=== PATIENT | male | born 1935 | race Caucasian/White ===

== ENCOUNTER 2020-03-04 08:45 | Emergency (ER) | payer MEDICARE ==
[~2020-03-04] VITALS: Ht 188 cm; Wt 74.8 kg
[2020-03-04] MEDS ORDERED: HYDROCODONE/APAP 7.5MG-325MG 1 EA TAB PO PRN (09:00)
[2020-03-04] MEDS ORDERED: DIAZEPAM 2 MG TAB PO ONE (09:00)
[2020-03-04] MEDS ORDERED: LIDOCAINE 4% PATCH TP SCH (09:00)
[2020-03-04] MEDS ORDERED: ONDANSETRON HCL INJ 2MG/ML 2ML 2 MG/ML VIAL IV STA (09:06)
[2020-03-04] MEDS ORDERED: MORPHINE SULFATE INJ 4 MG/ML INJ 1ML IV PRN (09:15)
[2020-03-04] MEDS ORDERED: DIAZEPAM 5 MG TAB PO PRN (09:15)
[2020-03-04] MEDS ORDERED: FENTANYL 25 MCG/HR PATCH TOP SCH (09:15)
--- NOTE | 2020-03-04 09:27 | NUR ---
Patient provided with an incentive spirometer and proper use teaching by respiratory therapy. Dr. Albrecht explained to the patient the importance of lung expansion and deep breathing to prevent the possible complication of pneumonia. Patient and spouse stated understanding of teaching.
--- NOTE | 2020-03-04 09:39 | Emergency Department Note ---
History of Present Illnes History of Present Illness Chief Complaint: General Medicine Complaints History of Present Illness This is a 84 year old male arrives to the ED with complaints of left rib pain and back pain after a sudden motion at home. Patient denies any cough or shortness of breath. . Chief Complaint Comment Patient in from home with complaints of left rib and back pain that started after he reacted to tripping at home yesterday. Patient states he was walking through his home and tripped over a rug but did not fall. Patient reports that he "jerked" when he tripped and has been in pain since. The pain is reproducible with palpation over he back just below his left scapula and it is very painful for him to move his left arm. Patient also states that he is having pain when breathing and talking. Denies any physical injury/trauma from the incident. Historian: Patient Arrival Mode: Car Severity: mild Onset quality: sudden Duration (how long): day(s) Timing of current episode: constant Context: Reports trauma/injury Past Medical/Family History Physician Review I have reviewed the patient's past medical and family history. Any updates have been documented here. Past Medical History Recent Fever: No Clinical Suspicion of Infectio: No New/Unexplained Change in Ment: No Past Medical History: Hypertension, Osteoarthritis Past Surgical History: CABG Other Surgery: thyroidectomy Social History Smoking Cessation: Never Smoker Counseling Performed: No Alcohol Use: None Any Illegal Drug Use: No Physically hurt or threatened: No Other Any Pre-Existing Lines (PICC,: No Review of Systems Review of Systems Constitutional: Reports no symptoms EENTM: Reports no symptoms Cardiovascular: Reports no symptoms Respiratory: Reports no symptoms Gastrointestinal: Reports no symptoms Genitourinary: Reports no symptoms Musculoskeletal: Reports as per HPI, Reports back pain Integumentary: Reports no symptoms Neurological: Reports no symptoms Psychological: Reports no symptoms Endocrine: Reports no symptoms Hematological/Lymphatic: Reports no symptoms Physical Exam Related Data Allergies: Coded Allergies: aspirin (Verified Allergy, Unknown, 03/04/20) Triage Vital Signs Vital Signs Date Time Temp Pulse Resp B/P (MAP) Pulse Ox O2 Delivery O2 Flow Rate FiO2 03/04/20 08:51 97.9 75 18 127/92 97 Room Air Vital signs reviewed: Yes Physical Exam CONSTITUTIONAL Constitutional: Present well-developed, Present well-nourished HENT HENT: Present normocephalic, Present atraumatic, Present oropharynx clear/moist, Present nose normal HENT L/R: Present left ext ear normal, Present right ext ear normal EYES Eyes: Reports PERRL, Reports conjunctivae normal NECK Neck: Present ROM normal PULMONARY Pulmonary: Present effort normal, Present breath sounds normal CARDIOVASCULAR Cardiovascular: Present regular rhythm, Present heart sounds normal, Present capillary refill normal, Present normal rate GASTROINTESTINAL Abdominal: Present soft, Present nontender, Present bowel sounds normal GENITOURINARY Genitourinary: Present exam deferred SKIN Skin: Present warm, Present dry MUSCULOSKELETAL Musculoskeletal: Present tenderness, Present other (tenderness over left posterior ribs 5 and 6) NEUROLOGICAL Neurological: Present alert, Present oriented x 3, Present no gross motor or sensory deficits PSYCHOLOGICAL Psychological: Present mood/affect normal, Present judgement normal Results Imaging Imaging results reviewed: Yes Imaging Comments Impression: Age indeterminate though likely subacute-chronic minimally displaced fracture of the posterior left fifth rib. Correlate for point tenderness. No pneumothorax. Postsurgical mediastinum with coarse pulmonary interstitial prominence, likely age-related fibrotic changes. Assessment & Plan Medical Decision Making MDM 84-year-old male arrives to the ED with left-sided back pain, patient denies any shortness of breath but markedly uncomfortable on exam. Patient's x-ray findings consistent with moderate displaced left-sided rib fracture. Lidoderm patch applied, patient given a low-dose fentanyl patch. Patient also given oral pain medications. Pt noted marked relief from pain and was stable for discharge home. Patient was discharged home on incentive spirometer and I encouraged early ambulation and good pulmonary toilet to ensure no development of atelectasis thereby producing pneumonia. Expressed understanding of stable for discharge home. Assessment & Plan Final Impression: (1) Rib fracture Depart Disposition: HOME, SELF-CARE Last Vital Signs Date Time Temp Pulse Resp B/P (MAP) Pulse Ox O2 Delivery O2 Flow Rate FiO2 03/04/20 09:29 71 20 98 03/04/20 09:01 142/81 Room Air 03/04/20 08:59 97.9 Home Meds Active Scripts Tramadol Hcl* (ULTRAM 50MG*) 50 Mg Tab, 50 MG PO Q6HR PRN for MUSCLE SPASMS, #14 TAB Prov:DANNYR, JUAN MANUEL, DO 03/04/20 Lidocaine/Menthol (LIDOPATCH) 1 Each Adh..patch, 1 PATCH TOP DAILY, #14 PATCH Prov:JUAN MANUEL FERNANDEZ DO 03/04/20 Medications in the ED Acetaminophen/ Hydrocodone Bitart 1 ea ONCE PRN PO MODERATE PAIN (4-6); Start 03/04/20 at 09:00; Stop 03/11/20 at 08:59 Diazepam 2 mg ONCE ONCE PO ; Start 03/04/20 at 09:00; Stop 03/04/20 at 09:07; Status DC Lidocaine 1 ea ONCE TP ; Start 03/04/20 at 09:00; Stop 04/03/20 at 08:59 Diazepam 5 mg ONCE PRN PO ANXIETY Last administered on 03/04/20at 09:12; Admin Dose 5 MG; Start 03/04/20 at 09:15; Stop 03/11/20 at 09:14 Morphine Sulfate 4 mg ONCE PRN IV SEVERE PAIN (7-10) Last administered on 03/04/20at 09:12; Admin Dose 4 MG; Start 03/04/20 at 09:15; Stop 03/11/20 at 09:14 Ondansetron HCl 4 mg NOW STAT IV Last administered on 03/04/20at 09:12; Admin Dose 4 MG; Start 03/04/20 at 09:06; Stop 03/04/20 at 09:10; Status DC Fentanyl 1 ea Q72H TOP ; Start 03/04/20 at 09:15; Stop 03/11/20 at 09:14 JUAN MANUEL FERNANDEZ DO Mar 04, 2020 09:38
--- NOTE | 2020-03-04 10:08 | Diagnostic Imaging Report ---
Exam: Left rib series with frontal chest radiograph History: Rib pain Comparison: None. Findings: The lungs are well-inflated. Coarse prominence of the interstitium throughout the lungs. No pleural effusion or pneumothorax. Postsurgical changes of the mediastinum with multiple intact sternotomy wires and mediastinal surgical clips. Normal heart size without overt pulmonary edema. Age-indeterminate though likely subacute-chronic minimally displaced fracture of the posterior left fifth rib. No additional displaced fracture. Impression: Age indeterminate though likely subacute-chronic minimally displaced fracture of the posterior left fifth rib. Correlate for point tenderness. No pneumothorax. Postsurgical mediastinum with coarse pulmonary interstitial prominence, likely age-related fibrotic changes. Signed by: Dr. Ludin Short M.D. on 03/04/2020 10:05 AM
[2020-03-04] MEDS ORDERED: LIDOPATCH1 EACH TOP (10:36)
[2020-03-04] MEDS ORDERED: ULTRAM 50MG50 MG PO (10:36)
[2020-03-04 10:50] VITALS: BP 139/77
--- OUTSIDE RECORDS SUMMARY | 2020-03-04 10:57 | XMS REPORT | Continuity of Care Document ---
Author Author [facility] t Organization [facility] Address [address] [place] [address] Phone Unavailable Care Team Providers Care Circuit Board Assembler Name Role Phone Dale Hernandez PCP Unavailable Vincenzo FERNANDEZ Attphys Unavailable KAT MARIE Attphys Unavailable TYLER BRAVO Attphys Unavailable RASHI, ARIF Attphys Unavailable ALI, QASAM SANAH Admphys Unavailable VALDEZ, DALLIN Admphys Unavailable Problems Condition Name Condition Details Condition Category Status Onset Date Resolution Date Last Treatment Date Treating Clinician Comments Source Pneumonia of both lower lobes due to infectious organi sm Pneumonia of both lower lobes due to infectious organism Disease Active 2017-09-26 00:00:00 [facility] Acute respiratory failure with hypoxia Acute respiratory rizwana lure with hypoxia Disease Active 2017-09-26 00:00:00 [facility] Pneumonia of both lungs due to infectious organism Pne umonia of both lungs due to infectious organism Disease Active 2016-12-30 00:00:00 [facility] Hypophosphatemia Hypophosphatemia Disease Active 2016-12-30 00:00:00 [facility] Thrombocytopenia Thrombocytopenia Disease Active 2016-12-30 00:00:00 [facility] Hyperlipidemia Hyperlipidemia Disease Active 2016-12-30 00:00:00 [facility] Hypertension Hypertension Disease Active 2016-12-30 00:00:00 [facility] Anemia Anemia Disease Active 2016-12-30 00:00:00 [facility] Leukopenia Leukopenia Disease Active 2016-12-30 00:00:00 [facility] Dehydration Dehydration Disease Active 2016-12-30 00:00:00 [facility] PAF (paroxysmal atrial fibrillation) PAF (paroxysmal atrial fibrillation) Disease Active 2016-05-11 00:00:00 [facility] Acute kidney injury Acute kidney injury Disease Active 2015-10-10 [facility] Hyp[facility] Disease Active 2015-10-09 00:00:00 [facility] CAD (coronary artery disease), S/P ACB i n 2008 cath, LAD 100%, RCA 100%, LCX critical, WYATT to LAD patent, SVG to OM1 60%,SVG to OM 2 patent, CAD (coronary artery disease), S/P ACB in 2008 cath, LAD 100%, RCA 100%, LCX critical, WYATT to LAD patent, SVG to OM1 60%,SVG to OM 2 patent, Disease Active 2013-10-11 00:00:00 [facility] Allergies, Adverse Reactions, Alerts Allergy Name Allergy Type Status Severity Reaction(s) Onset Date Inacti ve Date Treating Clinician Comments Source Salicylates Drug Allergy Active Other (See Comments) 2013-10-10 00:00:00 GI BLEEDStomach bleed [facility] Aspirin Propensity to adverse reactions Active Othe r (See Comments) 2007-08-25 00:00:00 GI BLEED [facility] Family History Family Member Diagnosis Comments Start Date Stop Date Source Natural father Alcohol abuse [facility] Natural mother Arthritis [facility] Natural mother Stroke [facility] Natural son Diabetes [facility] Social History Social Habit Start Date Stop Date Quantity Comments Source Sex Assigned At [facility] Smoking Status Start Date Stop Date Source Never smoker [facility] Medications Ordered Medication Name Filled Medication Name Start Date Stop Da te Current Medication? Ordering Clinician Indication Dosage Frequency Signature (SIG) Comments Components Source predniSONE (DELTASONE) 10 MG tablet 2017-10-04 00:00:00 Yes Take 2 tablet x 3 days then 1 tablet x 3 days then stop. [facility] levothyroxine (SYNTHROID, LEVOTHROID) 112 MCG tablet 2 11:20:44 Yes 112ug Take 112 mcg by mouth Every morning on a n empty stomach. [facility] fish oil-dha-epa 1,200-144-216 mg Cap 2017-09-26 10:58:49 Yes [id number] Take by mouth 3 (three) times daily . [facility] amiodarone (PACERONE) 200 MG tablet 2017-09-26 10:58:49 Yes 100mg QD Take 100 mg by mouth daily . [facility] alfuzosin (UROXATRAL) 10 mg 24 hr tablet 2017-09-26 10:58:49 Yes 10mg QD Take 10 mg by mouth daily. [facility] azelastine (ASTELIN) 137 mcg (0.1 %) nasal spray 2016-12-27 18:27:46 Yes 1{spray} Q.5D [address] spray [address] Nasal rou te 2 (two) times daily Use in each nostril as directed . [facility] atorvastatin (LIPITOR) 40 MG tablet 2016-12-27 18:27:45 Yes 40mg QD Take 40 mg by mouth daily. [facility] pantoprazole (PROTONIX) 40 MG tablet 2016-05-13 00:00:00 Ye s 40mg QD Take 1 tablet (40 mg total) by mouth daily Take twice daily for 1 week and then daily therafter. [facility] VITAMIN B COMPLEX ORAL 2015-10-09 10:57:05 Yes Take by mouth. [facility] tiZANidine (ZANAFLEX) 4 MG tablet 2015-09-05 00:00:00 Yes TAKE ONE TABLET BY MOUTH EVERY 6 HOURS NEEDED FOR PAIN. [facility] clopidogrel (PLAVIX) 75 mg tablet 2015-08-15 00:00:00 Yes TAKE ONE TABLET BY MOUTH EVERY DAY. [facility] nitroglycerin (NITROSTAT) 0.4 MG SL tablet 2015-07-19 00:00:[address] 0.4 mg under the tongue. [facility] gabapentin (NEURONTIN) 100 MG capsule 2015-06-27 00:00:00 Y es 100mg QD Take 100 mg by mouth nightly . [facility] niacin (NIASPAN) 1000 MG CR tablet 2014-03-06 00:00:00 Yes TAKE 1 TABLET BY MOUTH AT BEDTIME. [facility] folic acid (FOLVITE) 400 MCG tablet 2013-10-10 01:26:00 Yes 400ug QD Take 400 mcg by mouth daily. [facility] Procedures This patient has no known procedures. Results Test Description Test Time Test Comments Results Result Comments Source RIBS UNILAT W/CXR 2020-03-04 09:59:00 [place] [address] Patient Name: EMMA AMATO MR #: [id number] : 1935 Age/Sex: 84/M Req #: [id number] Adm Physician: Ordered by: JUAN MANUEL FERNANDEZ DO Report #: [id number] Location: ER Room/Bed: Procedure: [id number] DX/RIBS UNILAT W/CXR Exam Date: 03/04/20 Exam Time: 909 REPORT STATUS: Signed Exam: Left rib series with frontal chest radiograph History: Rib pain Comparison: None. Findings: The lungs are well-inflated. Coarse prominence of the interstitium throughout the lungs. No pleural effusion or pneumothorax. Postsurgical changes of the mediastinum with multiple intact sternotomy wires and mediastinal surgical clips. Normal heart size without overt pulmonary edema. Age-indeterminate though likely subacute-chronic minimally displaced fracture of the posterior left fifth rib. No additional displaced fracture. Impression: Age indeterminate though likely subacute-chronic minimally displaced fracture of t he posterior left fifth rib. Correlate for point tenderness. No pneumothorax. Postsurgical mediastinum with coarse pulmonary interstitial prominence, likely age-related fibrotic changes. Signed by: Dr. Isaac Short M.D. on 03/04/2020 10:05 AM Dictated By: ISAAC SHORT MD 1005 Transcribed By: JOSE R on 03/04/20 1005 COPY TO: JUAN MANUEL FERNANDEZ, DO AFB CULTURE + SMEAR 2017-10-31 07:58:00 Test Item CULTURE (BEAKER) (test code = 1095) MYCOBACTERIUM ABSCESSUS A Mycobacterium abscessus* - subsp. abscessusIdentification performed by:[facility], Dept. of Microbiology Research, 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 Because of possible gene transfer, testing of two genes is r equired for subspecies of M. abscessus and some M. fortuitum group. The erm gene has a functional sequence and hence will be macrolide resistant.FUNGUS CULTURE + [id number] 15:43:00* Test Item Value Reference Range Interpretation Comments CULTURE (BEAKER) (test code = 1095) A 1+ Nazia albicans FUNGUS SMEAR (BEAKER) (test code = 1406) No fungi seen BASIC METABOLIC [id number] 06:37:00* Test Item Value Reference Range Interpretation Comments SODIUM (BEAKER) (test code = 381) 141 meq/L 136-145 POTASSIUM (BEAKER) (test code = 379) 4.2 meq/L 3.5-5.1 CHLORIDE (BEAKER) (test code = 382) 112 meq/L 98-107 H CO2 (BEAKER) (test code = 355) 23 meq/L 22-29 BLOOD UREA NITROGEN (BEAKER) (test code = 354) 32 mg/dL 7-21 H CREATININE (BEAKER) (test code = 358) 0.89 mg/dL 0.57-1.25 GLUCOSE RANDOM (BEAKER) (test code = 652) 92 mg/dL 70-105 CALCIUM (BEAKER) (test code = 697) 7.8 mg/dL 8.4-10.2 L EGFR (BEAKER) (test code = 1092) 82 mL/min/1.73 sq m ESTIMATED GFR IS NOT ACCURATE CREATININE CLEARANCE IN PREDICTING GLOMERULAR FILTRATION RATE. ESTIMATED GFR IS NOT APPLICABLE FOR DIALYSIS PATIENTS. [id number] 06:29:00* Test Item Value Reference Range Interpretation Comments PHOSPHORUS (BEAKER) (test code = 604) 2.4 mg/dL 2.3-4.7 [id number] 06:29:00* Test Item Value Reference Range Interpretation Comments MAGNESIUM (BEAKER) (test code = 627) 1.8 mg/dL 1.6-2.6 CBC W/PLT COUNT & AUTO [id number] 06:11:00* Test Item Value Reference Range Interpretation Comments WHITE BLOOD CELL COUNT (BEAKER) (test code = 775) 6.6 K/ L 3.5- 10.5 RED BLOOD CELL COUNT (BEAKER) (test code = 761) 2.69 M/ L 4.63-6 .08 L HEMOGLOBIN (BEAKER) (test code = 410) 8.8 GM/DL 13.7-17.5 L HEMATOCRIT (BEAKER) (test code = 411) 27.0 % 40.1-51.0 L MEAN CORPUSCULAR VOLUME (BEAKER) (test code = 753) 100.4 fL 79. 0-92.2 H MEAN CORPUSCULAR HEMOGLOBIN (BEAKER) (test code = 751) 32.7 pg 25.7-32.2 H MEAN CORPUSCULAR HEMOGLOBIN CONC (BEAKER) (test code = 752) 32.6 GM/DL 32.3-36.5 RED CELL DISTRIBUTION WIDTH (BEAKER) (test code = 412) 14.5 % 11.6-14.4 H PLATELET COUNT (BEAKER) (test code = 756) 220 K/CU MM 150-450 MEAN PLATELET VOLUME (BEAKER) (test code = 754) 9.9 fL 9.4-12 .4 NUCLEATED RED BLOOD CELLS (BEAKER) (test code = 413) 0 /100 WBC 0 -0 NEUTROPHILS RELATIVE PERCENT (BEAKER) (test code = 429) 76 % LYMPHOCYTES RELATIVE PERCENT (BEAKER) (test code = 430) 17 % MONOCYTES RELATIVE PERCENT (BEAKER) (test code = 431) 6 % EOSINOPHILS RELATIVE PERCENT (BEAKER) (test code = 432) 1 % BASOPHILS RELATIVE PERCENT (BEAKER) (test code = 437) 0 % NEUTROPHILS ABSOLUTE COUNT (BEAKER) (test code = 670) 4.98 K/ L 1.78-5.38 LYMPHOCYTES ABSOLUTE COUNT (BEAKER) (test code = 414) 1.12 K/ L 1.32-3.57 L MONOCYTES ABSOLUTE COUNT (BEAKER) (test code = 415) 0.36 K/ L 0. 30-0.82 EOSINOPHILS ABSOLUTE COUNT (BEAKER) (test code = 416) 0.03 K/ L 0.04-0.54 L BASOPHILS ABSOLUTE COUNT (BEAKER) (test code = 417) 0.01 K/ L 0. 01-0.08 IMMATURE GRANULOCYTES-RELATIVE PERCENT (BEAKER) (test code = 2801) 1 % 0-1 [id number] 06:45:00* Test Item Value Reference Range Interpretation Comments PHOSPHORUS (BEAKER) (test code = 604) 2.1 mg/dL 2.3-4.7 L [id number] 06:45:00* Test Item Value Reference Range Interpretation Comments MAGNESIUM (BEAKER) (test code = 627) 2.0 mg/dL 1.6-2.6 BASIC METABOLIC [id number] 06:45:00* Test Item Value Reference Range Interpretation Comments SODIUM (BEAKER) (test code = 381) 142 meq/L 136-145 POTASSIUM (BEAKER) (test code = 379) 4.4 meq/L 3.5-5.1 CHLORIDE (BEAKER) (test code = 382) 114 meq/L 98-107 H CO2 (BEAKER) (test code = 355) 22 meq/L 22-29 BLOOD UREA NITROGEN (BEAKER) (test code = 354) 32 mg/dL 7-21 H CREATININE (BEAKER) (test code = 358) 0.85 mg/dL 0.57-1.25 GLUCOSE RANDOM (BEAKER) (test code = 652) 121 mg/dL 70-105 H CALCIUM (BEAKER) (test code = 697) 8.1 mg/dL 8.4-10.2 L EGFR (BEAKER) (test code = 1092) 87 mL/min/1.73 sq m ESTIMATED GFR IS NOT ACCURATE CREATININE CLEARANCE IN PREDICTING GLOMERULAR FILTRATION RATE. ESTIMATED GFR IS NOT APPLICABLE FOR DIALYSIS PATIENTS. CBC W/PLT COUNT & AUTO [id number] 06:45:00* Test Item Value Reference Range Interpretation Comments WHITE BLOOD CELL COUNT (BEAKER) (test code = 775) 5.1 K/ L 3.5- 10.5 RED BLOOD CELL COUNT (BEAKER) (test code = 761) 2.80 M/ L 4.63-6 .08 L HEMOGLOBIN (BEAKER) (test code = 410) 9.0 GM/DL 13.7-17.5 L HEMATOCRIT (BEAKER) (test code = 411) 28.3 % 40.1-51.0 L MEAN CORPUSCULAR VOLUME (BEAKER) (test code = 753) 101.1 fL 79. 0-92.2 H MEAN CORPUSCULAR HEMOGLOBIN (BEAKER) (test code = 751) 32.1 pg 25.7-32.2 MEAN CORPUSCULAR HEMOGLOBIN CONC (BEAKER) (test code = 752) 31.8 GM/DL 32.3-36.5 L RED CELL DISTRIBUTION WIDTH (BEAKER) (test code = 412) 14.5 % 11.6-14.4 H PLATELET COUNT (BEAKER) (test code = 756) 166 K/CU MM 150-450 MEAN PLATELET VOLUME (BEAKER) (test code = 754) 10.5 fL 9.4-12 .4 NUCLEATED RED BLOOD CELLS (BEAKER) (test code = 413) 0 /100 WBC 0 -0 NEUTROPHILS RELATIVE PERCENT (BEAKER) (test code = 429) 85 % LYMPHOCYTES RELATIVE PERCENT (BEAKER) (test code = 430) 10 % MONOCYTES RELATIVE PERCENT (BEAKER) (test code = 431) 4 % EOSINOPHILS RELATIVE PERCENT (BEAKER) (test code = 432) 0 % BASOPHILS RELATIVE PERCENT (BEAKER) (test code = 437) 0 % NEUTROPHILS ABSOLUTE COUNT (BEAKER) (test code = 670) 4.35 K/ L 1.78-5.38 LYMPHOCYTES ABSOLUTE COUNT (BEAKER) (test code = 414) 0.50 K/ L 1.32-3.57 L MONOCYTES ABSOLUTE COUNT (BEAKER) (test code = 415) 0.22 K/ L 0. 30-0.82 L EOSINOPHILS ABSOLUTE COUNT (BEAKER) (test code = 416) 0.00 K/ L 0.04-0.54 L BASOPHILS ABSOLUTE COUNT (BEAKER) (test code = 417) 0.00 K/ L 0. 01-0.08 L IMMATURE GRANULOCYTES-RELATIVE PERCENT (BEAKER) (test code = 2801) 1 % 0-1 FL, ESOPH, SWALLOW FUNCTION, WITH CINE OR [id number] 12:06:00Reason for exam:->pharyngeal dysphagiaFINAL REPORT Modified barium swallow with speech pathology History: pharyngeal dysphagia Technique: Modified barium swallow was performed in conjunction with speech pathology. Examination utilized various textures of barium. Fluoroscopic observation was performed during swallowing. Total fluoroscopy time: 2.4 minutes Total number of films: 1 IMPRESSION: There is laryngeal penetration with thin liquid barium without aspiration. Please refer to the speech pathology report for further details. Signed: Lobo Dyson MDReport Verified Date/Time: 10/02/2017 12:06:57 Reading Location: [facility] [id number] [facility] Consult Reading Room UM CULTURE + GRAM STAIN 2017-10-02 11:15:00* Test Item Value Reference Range Interpretation Comments CULTURE (BEAKER) (test code = 1095) PSEUDOMONAS AERUGINOSA (MUCO ID-PHENOTYPE) A 1+ Pseudomonas aeruginosa (Mucoid-phenot ype) Amikacin (test code = 1) Susceptible 0-16 , Resistant <0 or >16 S Aztreonam (test code = 32) Susceptible 0-8 , Resistant <0 or >8 S Cefepime (test code = 51) Susceptible 0-8 , Resistant <0 or >8 S Ceftazidime (test code = 27) Susceptible 0-8 , Resista nt <0 or >8 S Ciprofloxacin (test code = 7) Susceptible 0-1 , Resist ant <0 or >1 S Doripenem (test code = 100) Susceptible 0-2 , Resistan t <0 or >2 S Gentamicin (test code = 18) Susceptible 0-4 , Resistan t <0 or >4 S Imipenem (test code = 19) Susceptible 0-2 , Resistant <0 or >2 S Levofloxacin (test code = 22) Susceptible 0-2 , Resist ant <0 or >2 S Meropenem (test code = 34) Susceptible 0-2 , Resistant <0 or >2 S Piperacillin (test code = 24) Susceptible 0-16 , Resis tant <0 or >16 S Piperacillin + Tazobactam (test code = 29) Susceptible 0-16 , Resistant <0 or >16 S Tobramycin (test code = 25) Susceptible 0-4 , Resistan t <0 or >4 S GRAM STAIN RESULT (BEAKER) (test code = 1123) 3+ White blood cells seen GRAM STAIN RESULT (BEAKER) (test code = 609970) 0-5 epithelial cell s GRAM STAIN RESULT (BEAKER) (test code = 946546) 1+ gram negative ro ds GRAM STAIN RESULT (BEAKER) (test code = 591243) <1+ yeast 2+ YeastNo Normal respiratory meg presentSPUTUM CULTURE + GRAM [id number] 11:02:00* Test Item Value Reference Range Interpretation Comments CULTURE (BEAKER) (test code = 1095) A <1+ Same organism has been isolated from cultures(s) of the same body site within 3 days. Repeat identification and susceptibility testing performed only after consultation with the clinical microbiology laboratory.Refer to previous culture ofPseudomonas aeruginosa GRAM STAIN RESULT (BEAKER) (test code = 1123) 3+ White blood cells seen GRAM STAIN RESULT (BEAKER) (test code = 439445) 0-5 epithelial cell s GRAM STAIN RESULT (BEAKER) (test code = 949175) <1+ budding yeast 2+ YeastNo Normal respiratory meg presentSPUTUM CULTURE + GRAM [id number] 10:54:00* Test Item Value Reference Range Interpretation Comments CULTURE (BEAKER) (test code = 1095) A 1+ Same organism has been isolated from culture(s) of the same body site and collection date. Repeat identification performed only after consultation with the clinical microbiology laboratory.Refer to previous culture ofPseudomonas aeruginosa* - Mucoid-phenotype CULTURE (BEAKER) (test code = 1095) PSEUDOMONAS AERUGINOSA A <1+ Pseudomonas aeruginosa Amikacin (test code = 1) Susceptible 0-16 , Resistant <0 or >16 S Aztreonam (test code = 32) Susceptible 0-8 , Resistant <0 or >8 S Cefepime (test code = 51) Susceptible 0-8 , Resistant <0 or >8 S Ceftazidime (test code = 27) Susceptible 0-8 , Resista nt <0 or >8 S Ciprofloxacin (test code = 7) Susceptible 0-1 , Resist ant <0 or >1 S Doripenem (test code = 100) Susceptible 0-2 , Resistan t <0 or >2 S Gentamicin (test code = 18) Susceptible 0-4 , Resistan t <0 or >4 S Imipenem (test code = 19) Susceptible 0-2 , Resistant <0 or >2 S Levofloxacin (test code = 22) Susceptible 0-2 , Resist ant <0 or >2 S Meropenem (test code = 34) Susceptible 0-2 , Resistant <0 or >2 S Piperacillin (test code = 24) Susceptible 0-16 , Resis tant <0 or >16 S Piperacillin + Tazobactam (test code = 29) Susceptible 0-16 , Resistant <0 or >16 S Tobramycin (test code = 25) Susceptible 0-4 , Resistan t <0 or >4 S GRAM STAIN RESULT (BEAKER) (test code = 1123) 3+ White blood cells seen GRAM STAIN RESULT (BEAKER) (test code = 124017) 0-5 epithelial cell s GRAM STAIN RESULT (BEAKER) (test code = 473845) 4+ gram negative ro ds GRAM STAIN RESULT (BEAKER) (test code = 615286) <1+ yeast 1+ Normal respiratory meg [id number] 06:58:00* Test Item Value Reference Range Interpretation Comments MAGNESIUM (BEAKER) (test code = 627) 1.9 mg/dL 1.6-2.6 BASIC METABOLIC [id number] 06:58:00* Test Item Value Reference Range Interpretation Comments SODIUM (BEAKER) (test code = 381) 143 meq/L 136-145 POTASSIUM (BEAKER) (test code = 379) 4.3 meq/L 3.5-5.1 CHLORIDE (BEAKER) (test code = 382) 117 meq/L 98-107 H CO2 (BEAKER) (test code = 355) 19 meq/L 22-29 L BLOOD UREA NITROGEN (BEAKER) (test code = 354) 26 mg/dL 7-21 H CREATININE (BEAKER) (test code = 358) 0.84 mg/dL 0.57-1.25 GLUCOSE RANDOM (BEAKER) (test code = 652) 127 mg/dL 70-105 H CALCIUM (BEAKER) (test code = 697) 8.0 mg/dL 8.4-10.2 L EGFR (BEAKER) (test code = 1092) 88 mL/min/1.73 sq m ESTIMATED GFR IS NOT ACCURATE CREATININE CLEARANCE IN PREDICTING GLOMERULAR FILTRATION RATE. ESTIMATED GFR IS NOT APPLICABLE FOR DIALYSIS PATIENTS. CBC W/PLT COUNT & AUTO [id number] 06:32:00* Test Item Value Reference Range Interpretation Comments WHITE BLOOD CELL COUNT (BEAKER) (test code = 775) 4.7 K/ L 3.5- 10.5 RED BLOOD CELL COUNT (BEAKER) (test code = 761) 2.86 M/ L 4.63-6 .08 L HEMOGLOBIN (BEAKER) (test code = 410) 9.3 GM/DL 13.7-17.5 L HEMATOCRIT (BEAKER) (test code = 411) 28.9 % 40.1-51.0 L MEAN CORPUSCULAR VOLUME (BEAKER) (test code = 753) 101.0 fL 79. 0-92.2 H MEAN CORPUSCULAR HEMOGLOBIN (BEAKER) (test code = 751) 32.5 pg 25.7-32.2 H MEAN CORPUSCULAR HEMOGLOBIN CONC (BEAKER) (test code = 752) 32.2 GM/DL 32.3-36.5 L RED CELL DISTRIBUTION WIDTH (BEAKER) (test code = 412) 14.2 % 11.6-14.4 PLATELET COUNT (BEAKER) (test code = 756) 114 K/CU MM 150-450 L MEAN PLATELET VOLUME (BEAKER) (test code = 754) 10.7 fL 9.4-12 .4 NUCLEATED RED BLOOD CELLS (BEAKER) (test code = 413) 0 /100 WBC 0 -0 NEUTROPHILS RELATIVE PERCENT (BEAKER) (test code = 429) 87 % LYMPHOCYTES RELATIVE PERCENT (BEAKER) (test code = 430) 10 % MONOCYTES RELATIVE PERCENT (BEAKER) (test code = 431) 2 % EOSINOPHILS RELATIVE PERCENT (BEAKER) (test code = 432) 1 % BASOPHILS RELATIVE PERCENT (BEAKER) (test code = 437) 0 % NEUTROPHILS ABSOLUTE COUNT (BEAKER) (test code = 670) 4.10 K/ L 1.78-5.38 LYMPHOCYTES ABSOLUTE COUNT (BEAKER) (test code = 414) 0.46 K/ L 1.32-3.57 L MONOCYTES ABSOLUTE COUNT (BEAKER) (test code = 415) 0.11 K/ L 0. 30-0.82 L EOSINOPHILS ABSOLUTE COUNT (BEAKER) (test code = 416) 0.05 K/ L 0.04-0.54 BASOPHILS ABSOLUTE COUNT (BEAKER) (test code = 417) 0.00 K/ L 0. 01-0.08 L IMMATURE GRANULOCYTES-RELATIVE PERCENT (BEAKER) (test code = 2801) 0 % 0-1 BLOOD [id number] 18:00:00* Test Item Value Reference Range Interpretation Comments CULTURE (BEAKER) (test code = 1095) No growth in 5 days VANCOMYCIN LEVEL, [id number] 11:48:00* Test Item Value Reference Range Interpretation Comments VANCOMYCIN TROUGH (BEAKER) (test code = 522) 13.9 ug/mL 10.0-20.0 BLOOD [id number] 11:00:00* Test Item Value Reference Range Interpretation Comments CULTURE (BEAKER) (test code = 1095) No growth in 5 days RAD, CHEST, 1 VIEW, NON [id number] 09:04:00Reason for exam:->sobShould this be performed at the bedside?->YesFINAL REPORT Chest one view INDICATION: Shortness of breath COMPARISON: 09/29/2017 IMPRESSION: Bilateral mixed reticulonodular interstitial and right greater than left lower lung predominant airspace opacities are similar suggest multifocal pneumonitis and/or aspiration, possibly superimposed on edema. Dependent pleural effusions remain present. The cardiomediastinal contours are partially obscured but stable with median sternotomy changes. No pneumothorax is seen. Signed: Vivian Traore MDReport Verified Date/Time: 10/01/2017 09:04:33 Reading Location: [facility] Radiology Reading Room C METABOLIC [id number] 04:59:00* Test Item Value Reference Range Interpretation Comments SODIUM (BEAKER) (test code = 381) 143 meq/L 136-145 POTASSIUM (BEAKER) (test code = 379) 3.8 meq/L 3.5-5.1 CHLORIDE (BEAKER) (test code = 382) 116 meq/L 98-107 H CO2 (BEAKER) (test code = 355) 20 meq/L 22-29 L BLOOD UREA NITROGEN (BEAKER) (test code = 354) 26 mg/dL 7-21 H CREATININE (BEAKER) (test code = 358) 0.86 mg/dL 0.57-1.25 GLUCOSE RANDOM (BEAKER) (test code = 652) 102 mg/dL 70-105 CALCIUM (BEAKER) (test code = 697) 8.0 mg/dL 8.4-10.2 L EGFR (BEAKER) (test code = 1092) 85 mL/min/1.73 sq m ESTIMATED GFR IS NOT ACCURATE CREATININE CLEARANCE IN PREDICTING GLOMERULAR FILTRATION RATE. ESTIMATED GFR IS NOT APPLICABLE FOR DIALYSIS PATIENTS. CBC W/PLT COUNT & AUTO [id number] 04:41:00* Test Item Value Reference Range Interpretation Comments WHITE BLOOD CELL COUNT (BEAKER) (test code = 775) 6.4 K/ L 3.5- 10.5 RED BLOOD CELL COUNT (BEAKER) (test code = 761) 2.96 M/ L 4.63-6 .08 L HEMOGLOBIN (BEAKER) (test code = 410) 9.5 GM/DL 13.7-17.5 L HEMATOCRIT (BEAKER) (test code = 411) 29.5 % 40.1-51.0 L MEAN CORPUSCULAR VOLUME (BEAKER) (test code = 753) 99.7 fL 79. 0-92.2 H MEAN CORPUSCULAR HEMOGLOBIN (BEAKER) (test code = 751) 32.1 pg 25.7-32.2 MEAN CORPUSCULAR HEMOGLOBIN CONC (BEAKER) (test code = 752) 32.2 GM/DL 32.3-36.5 L RED CELL DISTRIBUTION WIDTH (BEAKER) (test code = 412) 14.5 % 11.6-14.4 H PLATELET COUNT (BEAKER) (test code = 756) 96 K/CU MM 150-450 L MEAN PLATELET VOLUME (BEAKER) (test code = 754) 10.3 fL 9.4-12 .4 NUCLEATED RED BLOOD CELLS (BEAKER) (test code = 413) 0 /100 WBC 0 -0 NEUTROPHILS RELATIVE PERCENT (BEAKER) (test code = 429) 83 % LYMPHOCYTES RELATIVE PERCENT (BEAKER) (test code = 430) 7 % MONOCYTES RELATIVE PERCENT (BEAKER) (test code = 431) 5 % EOSINOPHILS RELATIVE PERCENT (BEAKER) (test code = 432) 4 % BASOPHILS RELATIVE PERCENT (BEAKER) (test code = 437) 0 % NEUTROPHILS ABSOLUTE COUNT (BEAKER) (test code = 670) 5.35 K/ L 1.78-5.38 LYMPHOCYTES ABSOLUTE COUNT (BEAKER) (test code = 414) 0.45 K/ L 1.32-3.57 L MONOCYTES ABSOLUTE COUNT (BEAKER) (test code = 415) 0.32 K/ L 0. 30-0.82 EOSINOPHILS ABSOLUTE COUNT (BEAKER) (test code = 416) 0.27 K/ L 0.04-0.54 BASOPHILS ABSOLUTE COUNT (BEAKER) (test code = 417) 0.01 K/ L 0. 01-0.08 IMMATURE GRANULOCYTES-RELATIVE PERCENT (BEAKER) (test code = 2801) 1 % 0-1 CBC W/PLT COUNT & AUTO [id number] 06:19:00* Test Item Value Reference Range Interpretation Comments WHITE BLOOD CELL COUNT (BEAKER) (test code = 775) 7.1 K/ L 3.5- 10.5 RED BLOOD CELL COUNT (BEAKER) (test code = 761) 2.92 M/ L 4.63-6 .08 L HEMOGLOBIN (BEAKER) (test code = 410) 9.3 GM/DL 13.7-17.5 L HEMATOCRIT (BEAKER) (test code = 411) 29.3 % 40.1-51.0 L MEAN CORPUSCULAR VOLUME (BEAKER) (test code = 753) 100.3 fL 79. 0-92.2 H MEAN CORPUSCULAR HEMOGLOBIN (BEAKER) (test code = 751) 31.8 pg 25.7-32.2 MEAN CORPUSCULAR HEMOGLOBIN CONC (BEAKER) (test code = 752) 31.7 GM/DL 32.3-36.5 L RED CELL DISTRIBUTION WIDTH (BEAKER) (test code = 412) 14.4 % 11.6-14.4 PLATELET COUNT (BEAKER) (test code = 756) 89 K/CU MM 150-450 L MEAN PLATELET VOLUME (BEAKER) (test code = 754) 10.0 fL 9.4-12 .4 NUCLEATED RED BLOOD CELLS (BEAKER) (test code = 413) 0 /100 WBC 0 -0 NEUTROPHILS RELATIVE PERCENT (BEAKER) (test code = 429) 89 % LYMPHOCYTES RELATIVE PERCENT (BEAKER) (test code = 430) 5 % MONOCYTES RELATIVE PERCENT (BEAKER) (test code = 431) 4 % EOSINOPHILS RELATIVE PERCENT (BEAKER) (test code = 432) 1 % BASOPHILS RELATIVE PERCENT (BEAKER) (test code = 437) 0 % NEUTROPHILS ABSOLUTE COUNT (BEAKER) (test code = 670) 6.36 K/ L 1.78-5.38 H LYMPHOCYTES ABSOLUTE COUNT (BEAKER) (test code = 414) 0.38 K/ L 1.32-3.57 L MONOCYTES ABSOLUTE COUNT (BEAKER) (test code = 415) 0.27 K/ L 0. 30-0.82 L EOSINOPHILS ABSOLUTE COUNT (BEAKER) (test code = 416) 0.07 K/ L 0.04-0.54 BASOPHILS ABSOLUTE COUNT (BEAKER) (test code = 417) 0.01 K/ L 0. 01-0.08 IMMATURE GRANULOCYTES-RELATIVE PERCENT (BEAKER) (test code = 2801) 1 % 0-1 [id number] 06:00:00* Test Item Value Reference Range Interpretation Comments MAGNESIUM (BEAKER) (test code = 627) 2.0 mg/dL 1.6-2.6 BASIC METABOLIC [id number] 06:00:00* Test Item Value Reference Range Interpretation Comments SODIUM (BEAKER) (test code = 381) 139 meq/L 136-145 POTASSIUM (BEAKER) (test code = 379) 3.9 meq/L 3.5-5.1 CHLORIDE (BEAKER) (test code = 382) 115 meq/L 98-107 H CO2 (BEAKER) (test code = 355) 19 meq/L 22-29 L BLOOD UREA NITROGEN (BEAKER) (test code = 354) 31 mg/dL 7-21 H CREATININE (BEAKER) (test code = 358) 0.92 mg/dL 0.57-1.25 GLUCOSE RANDOM (BEAKER) (test code = 652) 104 mg/dL 70-105 CALCIUM (BEAKER) (test code = 697) 8.0 mg/dL 8.4-10.2 L EGFR (BEAKER) (test code = 1092) 79 mL/min/1.73 sq m ESTIMATED GFR IS NOT ACCURATE CREATININE CLEARANCE IN PREDICTING GLOMERULAR FILTRATION RATE. ESTIMATED GFR IS NOT APPLICABLE FOR DIALYSIS PATIENTS. RAD, CHEST, 1 VIEW, NON [id number] 09:07:00Reason for exam:->FU of pneumonia.Should this be performed at the bedside?->YesFINAL REPORT Chest, one view. HISTORY: Pneumonia COMPARISON: 09/28/2017 IMPRESSION: Unchanged diffuse bilateral airspace disease and trace bilateral pleural effusions. No identifiable pneumothorax. Cardiomediastinal silhouette is unchanged from prior examination. Signed: Cristhian Owusueport Verified Date/Time: 09/29/2017 09:07:25 Reading Location: [address] Body Reading Room [id number] 04:25:00* Test Item Value Reference Range Interpretation Comments PHOSPHORUS (BEAKER) (test code = 604) 2.0 mg/dL 2.3-4.7 L [id number] 04:25:00* Test Item Value Reference Range Interpretation Comments MAGNESIUM (BEAKER) (test code = 627) 2.0 mg/dL 1.6-2.6 BASIC METABOLIC [id number] 04:25:00* Test Item Value Reference Range Interpretation Comments SODIUM (BEAKER) (test code = 381) 143 meq/L 136-145 POTASSIUM (BEAKER) (test code = 379) 3.8 meq/L 3.5-5.1 CHLORIDE (BEAKER) (test code = 382) 116 meq/L 98-107 H CO2 (BEAKER) (test code = 355) 20 meq/L 22-29 L BLOOD UREA NITROGEN (BEAKER) (test code = 354) 31 mg/dL 7-21 H CREATININE (BEAKER) (test code = 358) 1.04 mg/dL 0.57-1.25 GLUCOSE RANDOM (BEAKER) (test code = 652) 99 mg/dL 70-105 CALCIUM (BEAKER) (test code = 697) 8.3 mg/dL 8.4-10.2 L EGFR (BEAKER) (test code = 1092) 69 mL/min/1.73 sq m ESTIMATED GFR IS NOT ACCURATE CREATININE CLEARANCE IN PREDICTING GLOMERULAR FILTRATION RATE. ESTIMATED GFR IS NOT APPLICABLE FOR DIALYSIS PATIENTS. CBC W/PLT COUNT & AUTO [id number] 04:17:00* Test Item Value Reference Range Interpretation Comments WHITE BLOOD CELL COUNT (BEAKER) (test code = 775) 9.4 K/ L 3.5- 10.5 RED BLOOD CELL COUNT (BEAKER) (test code = 761) 2.99 M/ L 4.63-6 .08 L HEMOGLOBIN (BEAKER) (test code = 410) 9.5 GM/DL 13.7-17.5 L HEMATOCRIT (BEAKER) (test code = 411) 29.5 % 40.1-51.0 L MEAN CORPUSCULAR VOLUME (BEAKER) (test code = 753) 98.7 fL 79. 0-92.2 H MEAN CORPUSCULAR HEMOGLOBIN (BEAKER) (test code = 751) 31.8 pg 25.7-32.2 MEAN CORPUSCULAR HEMOGLOBIN CONC (BEAKER) (test code = 752) 32.2 GM/DL 32.3-36.5 L RED CELL DISTRIBUTION WIDTH (BEAKER) (test code = 412) 14.3 % 11.6-14.4 PLATELET COUNT (BEAKER) (test code = 756) 102 K/CU MM 150-450 L MEAN PLATELET VOLUME (BEAKER) (test code = 754) 10.0 fL 9.4-12 .4 NUCLEATED RED BLOOD CELLS (BEAKER) (test code = 413) 0 /100 WBC 0 -0 NEUTROPHILS RELATIVE PERCENT (BEAKER) (test code = 429) 92 % LYMPHOCYTES RELATIVE PERCENT (BEAKER) (test code = 430) 3 % MONOCYTES RELATIVE PERCENT (BEAKER) (test code = 431) 3 % EOSINOPHILS RELATIVE PERCENT (BEAKER) (test code = 432) 0 % BASOPHILS RELATIVE PERCENT (BEAKER) (test code = 437) 0 % NEUTROPHILS ABSOLUTE COUNT (BEAKER) (test code = 670) 8.58 K/ L 1.78-5.38 H LYMPHOCYTES ABSOLUTE COUNT (BEAKER) (test code = 414) 0.32 K/ L 1.32-3.57 L MONOCYTES ABSOLUTE COUNT (BEAKER) (test code = 415) 0.31 K/ L 0. 30-0.82 EOSINOPHILS ABSOLUTE COUNT (BEAKER) (test code = 416) 0.04 K/ L 0.04-0.54 BASOPHILS ABSOLUTE COUNT (BEAKER) (test code = 417) 0.03 K/ L 0. 01-0.08 IMMATURE GRANULOCYTES-RELATIVE PERCENT (BEAKER) (test code = 2801) 1 % 0-1 SPIN/CONCENTRATION [id number] 02:58:00* Test Item Value Reference Range Interpretation Comments CONCENTRATION CHARGED (BEAKER) (test code = 2657) Done VANCOMYCIN LEVEL, [id number] 18:16:00* Test Item Value Reference Range Interpretation Comments VANCOMYCIN TROUGH (BEAKER) (test code = 522) 9.2 ug/mL 10.0-20.0 L CBC W/PLT COUNT & AUTO [id number] 12:00:00* Test Item Value Reference Range Interpretation Comments WHITE BLOOD CELL COUNT (BEAKER) (test code = 775) 8.7 K/ L 3.5- 10.5 RED BLOOD CELL COUNT (BEAKER) (test code = 761) 2.84 M/ L 4.63-6 .08 L HEMOGLOBIN (BEAKER) (test code = 410) 9.3 GM/DL 13.7-17.5 L HEMATOCRIT (BEAKER) (test code = 411) 28.6 % 40.1-51.0 L MEAN CORPUSCULAR VOLUME (BEAKER) (test code = 753) 100.7 fL 79. 0-92.2 H MEAN CORPUSCULAR HEMOGLOBIN (BEAKER) (test code = 751) 32.7 pg 25.7-32.2 H MEAN CORPUSCULAR HEMOGLOBIN CONC (BEAKER) (test code = 752) 32.5 GM/DL 32.3-36.5 RED CELL DISTRIBUTION WIDTH (BEAKER) (test code = 412) 14.3 % 11.6-14.4 PLATELET COUNT (BEAKER) (test code = 756) 113 K/CU MM 150-450 L MEAN PLATELET VOLUME (BEAKER) (test code = 754) 9.8 fL 9.4-12 .4 NUCLEATED RED BLOOD CELLS (BEAKER) (test code = 413) 0 /100 WBC 0 -0 IMMATURE GRANULOCYTES-RELATIVE PERCENT (BEAKER) (test code = 2801) 0 % 0-1 (MANUAL DIFFERENTIAL)2017-09-28 12:00:00* Test Item Value Reference Range Interpretation Comments NEUTROPHILS - REL (DIFF) (BEAKER) (test code = 1359) 88 % LYMPHOCYTES - REL (DIFF) (BEAKER) (test code = 1360) 3 % MONOCYTES - REL (DIFF) (BEAKER) (test code = 1361) 1 % EOSINOPHILS - REL (DIFF) (BEAKER) (test code = 1362) 0 % BASOPHILS - REL (DIFF) (BEAKER) (test code = 1363) 0 % BANDS - REL (DIFF) (BEAKER) (test code = 1348) 8 % 0-10 NEUTROPHILS - ABS (DIFF) (BEAKER) (test code = 1365) 7.66 K/ L 1 .80-8.00 LYMPHOCYTES - ABS (DIFF) (BEAKER) (test code = 1366) 0.26 K/ L 1 .48-4.50 L MONOCYTES - ABS (DIFF) (BEAKER) (test code = 1367) 0.09 K/ L 0.0 0-1.30 EOSINOPHILS - ABS (DIFF) (BEAKER) (test code = 1368) 0.00 K/ L 0 .00-0.50 BASOPHILS - ABS (DIFF) (BEAKER) (test code = 1369) 0.00 K/ L 0.0 0-0.20 BANDS-ABS (DIFF) (BEAKER) (test code = 1349) 0.7 K/ L 0.0-0.8 TOTAL COUNTED (BEAKER) (test code = 1351) 100 BANDS + SEGMENTED NEUTROPHILS (BEAKER) (test code = 1352) 8.35 WBC MORPHOLOGY (BEAKER) (test code = 487) Normal PLT MORPHOLOGY (BEAKER) (test code = 486) Normal RBC MORPHOLOGY (BEAKER) (test code = 762) Normal RAD, CHEST, 1 VIEW, NON [id number] 09:40:00Reason for exam:->FU of pneumonia.Should this be performed at the bedside?->YesFINAL REPORT HISTORY : FU of pneumonia.. Comparison: 09/27/2017 Comment: Single portable view of the chest was obtained. The cardiac silhouette size at the upper limits of normal. No pneumothorax or pleural effusion is visualized. There is stable diffuse interstitial airspace disease with reticular nodular components. There may be a trace right-sided pleural effusion. No definite pneumothorax is visualized. Signed: Lynne Moratayaeport Verified Date/Time: 09/28/2017 09:40:00 Reading Location: [address] Transitional Reading Room PHORUS 2017-09-28 05:36:00* Test Item Value Reference Range Interpretation Comments PHOSPHORUS (BEAKER) (test code = 604) 3.0 mg/dL 2.3-4.7 [id number] 05:36:00* Test Item Value Reference Range Interpretation Comments MAGNESIUM (BEAKER) (test code = 627) 2.1 mg/dL 1.6-2.6 BASIC METABOLIC [id number] 05:36:00* Test Item Value Reference Range Interpretation Comments SODIUM (BEAKER) (test code = 381) 144 meq/L 136-145 POTASSIUM (BEAKER) (test code = 379) 4.1 meq/L 3.5-5.1 CHLORIDE (BEAKER) (test code = 382) 116 meq/L 98-107 H CO2 (BEAKER) (test code = 355) 20 meq/L 22-29 L BLOOD UREA NITROGEN (BEAKER) (test code = 354) 39 mg/dL 7-21 H CREATININE (BEAKER) (test code = 358) 1.20 mg/dL 0.57-1.25 GLUCOSE RANDOM (BEAKER) (test code = 652) 102 mg/dL 70-105 CALCIUM (JAKE) (test code = 697) 8.4 mg/dL 8.4-10.2 EGFR (JAKE) (test code = 1092) 58 mL/min/1.73 sq m ESTIMATED GFR IS NOT ACCURATE CREATININE CLEARANCE IN PREDICTING GLOMERULAR FILTRATION RATE. ESTIMATED GFR IS NOT APPLICABLE FOR DIALYSIS PATIENTS. CT, CHEST, WITHOUT [id number] 15:23:00Please use ILD protocol. H/o bronchiectasis.FINAL REPORT CT OF THE CHEST CLINICAL HISTORY: Acute respiratory illness TECHNIQUE: CT of the chest is performed without intravenous contrast administration. This exam was performed according to our departmental dose-optimization program which includes automated exposure control, adjustment of the mA and/or kV according to patient size and/or use of iterative reconstruction technique. COMPARISON FILM: Chest radiograph from 09/27/2017 DISCUSSION: LINES/TUBES: None. LUNGS/AIRWAYS: Confluent airspace disease in the dependent portions of the bilateral lower lobes. There are also diffuse centrilobular nodules and tree-in-bud opacities throughout the lungs.PLEURA: No effusion or pneumothorax. HEART AND MEDIASTINUM: No mediastinal or hilar lymphadenopathy. No pericardial effusion. Coronary artery calcifications. BONES AND SOFT TISSUES: Anterior wedge compression deformity of T5 results in less than 25% loss of vertebral body height. There are degenerative changes throughout the thoracic spine. UPPER ABDOMEN: The visualized portions of the upper abdomen are unremarkable. IMPRESSION: Confluent airspace disease in the dependent portions of the bilateral lower lobes with diffuse tree-in-bud opacities in the remainder of the lungs. Findings can be seen in multifocal pneumonia/aspiration. Recommend follow-up CT after treatment to ensure resolution of these findings as underlying malignancy be obscured. Sig rosalva: Cristhian Owusu MDReport Verified Date/Time: 09/27/2017 15:23:12 Reading Loca tion: [facility] B1 C013Y CT Body Reading Room , CHEST, 1 VIEW, NON [id number] 13:48:00Reason for exam:->FU of pneumonia.Should this be performed at the bedside?->YesFINAL REPORT TECHNIQUE: Frontal chest radiograph dated 09/27/2017. CLINICAL HISTORY: FU pneumonia COMPARISON STUDY: Chest radiograph dated 09/26/2017 IMPRESSION:Ill-defined, bilateral patchy opacities and more dense consolidation in the left lower lobe are unchanged. No pleural effusion or pneumothorax. Cardiomediastinal silhouette is normal in size. No pulmonary edema. Midline sternotomy wires are intact and well aligned. No fracture.. Signed: Royer Kumari MDReport Verified Date/Time: 09/27/2017 13:48:31 Reading Location: [facility] [address] Radiology Reading Room W/PLT COUNT & AUTO [id number] 13:35:00* Test Item Value Reference Range Interpretation Comments WHITE BLOOD CELL COUNT (BEAKER) (test code = 775) 9.8 K/ L 3.5- 10.5 RED BLOOD CELL COUNT (BEAKER) (test code = 761) 3.37 M/ L 4.63-6 .08 L HEMOGLOBIN (BEAKER) (test code = 410) 10.6 GM/DL 13.7-17.5 L HEMATOCRIT (BEAKER) (test code = 411) 33.7 % 40.1-51.0 L MEAN CORPUSCULAR VOLUME (BEAKER) (test code = 753) 100.0 fL 79. 0-92.2 H MEAN CORPUSCULAR HEMOGLOBIN (BEAKER) (test code = 751) 31.5 pg 25.7-32.2 MEAN CORPUSCULAR HEMOGLOBIN CONC (BEAKER) (test code = 752) 31.5 GM/DL 32.3-36.5 L RED CELL DISTRIBUTION WIDTH (BEAKER) (test code = 412) 14.2 % 11.6-14.4 PLATELET COUNT (BEAKER) (test code = 756) 128 K/CU MM 150-450 L MEAN PLATELET VOLUME (BEAKER) (test code = 754) 9.8 fL 9.4-12 .4 NUCLEATED RED BLOOD CELLS (BEAKER) (test code = 413) 0 /100 WBC 0 -0 IMMATURE GRANULOCYTES-RELATIVE PERCENT (BEAKER) (test code = 2801) 1 % 0-1 (MANUAL DIFFERENTIAL)2017-09-27 13:35:00* Test Item Value Reference Range Interpretation Comments NEUTROPHILS - REL (DIFF) (BEAKER) (test code = 1359) 83 % LYMPHOCYTES - REL (DIFF) (BEAKER) (test code = 1360) 4 % MONOCYTES - REL (DIFF) (BEAKER) (test code = 1361) 3 % BANDS - REL (DIFF) (BEAKER) (test code = 1348) 10 % 0-10 NEUTROPHILS - ABS (DIFF) (BEAKER) (test code = 1365) 8.13 K/ L 1 .80-8.00 H LYMPHOCYTES - ABS (DIFF) (BEAKER) (test code = 1366) 0.39 K/ L 1 .48-4.50 L MONOCYTES - ABS (DIFF) (BEAKER) (test code = 1367) 0.29 K/ L 0.0 0-1.30 BANDS-ABS (DIFF) (BEAKER) (test code = 1349) 1.0 K/ L 0.0-0.8 H TOTAL COUNTED (BEAKER) (test code = 1351) 100 BANDS + SEGMENTED NEUTROPHILS (BEAKER) (test code = 1352) 9.11 WBC MORPHOLOGY (BEAKER) (test code = 487) Normal PLT MORPHOLOGY (BEAKER) (test code = 486) Normal RBC MORPHOLOGY (BEAKER) (test code = 762) Normal RESPIRATORY PANEL [id number] 12:25:00* Test Item Value Reference Range Interpretation Comments HUMAN METAPNEUMOVIRUS (BEAKER) (test code = 8213) Not detect ed Not detected, Inconclusive RHINOVIRUS (BEAKER) (test code = 7784) Not detected Not detec mario, Inconclusive INFLUENZA A (BEAKER) (test code = 0655) Not detected Not dete cted, Inconclusive INFLUENZA A SUBTYPE H1 (BEAKER) (test code = 9036) Not detec mario Not detected, Inconclusive INFLUENZA A SUBTYPE H3 (BEAKER) (test code = 2687) Not detec mario Not detected, Inconclusive INFLUENZA A SUBTYPE H1-2009 (BEAKER) (test code = 1258) Not detected Not detected, Inconclusive INFLUENZA B (BEAKER) (test code = 8168) Not detected Not dete cted, Inconclusive RESPIRATORY SYNCYTIAL VIRUS (BEAKER) (test code = 2489) Not detected Not detected, Inconclusive PARAINFLUENZA VIRUS 1 (BEAKER) (test code = 2691) Not detect ed Not detected, Inconclusive PARAINFLUENZA VIRUS 2 (BEAKER) (test code = 2692) Not detect ed Not detected, Inconclusive PARAINFLUENZA VIRUS 3 (BEAKER) (test code = 2693) Detected Not detected, Inconclusive A PARAINFLUENZA VIRUS 4 (BEAKER) (test code = 3200) Not detect ed Not detected, Inconclusive ADENOVIRUS (BEAKER) (test code = 2694) Not detected Not detec mario, Inconclusive CORONAVIRUS 229E (BEAKER) (test code = 3201) Not detected Not detected, Inconclusive CORONAVIRUS HKU1 (BEAKER) (test code = 3202) Not detected Not detected, Inconclusive CORONAVIRUS NL63 (BEAKER) (test code = 3203) Not detected Not detected, Inconclusive CORONAVIRUS OC43 (BEAKER) (test code = 3204) Not detected Not detected, Inconclusive BORDETELLA PERTUSSIS (BEAKER) (test code = 3205) Not detecte d Not detected, Inconclusive CHLAMYDOPHILA PNEUMONIAE (BEAKER) (test code = 3206) Not det ected Not detected, Inconclusive MYCOPLASMA PNEUMONIAE (BEAKER) (test code = 3207) Not detect ed Not detected, Inconclusive SEDIMENTATION [id number] 05:57:00* Test Item Value Reference Range Interpretation Comments SEDIMENTATION RATE, ERYTHROCYTE (BEAKER) (test code = 766) > mm/HR 0-40 H LACTATE DEHYDROGENASE (LDH)2017-09-27 05:02:00* Test Item Value Reference Range Interpretation Comments LACTATE DEHYDROGENASE (BEAKER) (test code = 635) 212 U/L 125-2 20 [id number] 05:00:00* Test Item Value Reference Range Interpretation Comments PHOSPHORUS (BEAKER) (test code = 604) 3.1 mg/dL 2.3-4.7 [id number] 05:00:00* Test Item Value Reference Range Interpretation Comments MAGNESIUM (BEAKER) (test code = 627) 2.4 mg/dL 1.6-2.6 BASIC METABOLIC [id number] 05:00:00* Test Item Value Reference Range Interpretation Comments SODIUM (BEAKER) (test code = 381) 140 meq/L 136-145 POTASSIUM (BEAKER) (test code = 379) 4.8 meq/L 3.5-5.1 CHLORIDE (BEAKER) (test code = 382) 111 meq/L 98-107 H CO2 (BEAKER) (test code = 355) 20 meq/L 22-29 L BLOOD UREA NITROGEN (BEAKER) (test code = 354) 42 mg/dL 7-21 H CREATININE (BEAKER) (test code = 358) 1.27 mg/dL 0.57-1.25 H GLUCOSE RANDOM (BEAKER) (test code = 652) 112 mg/dL 70-105 H CALCIUM (BEAKER) (test code = 697) 8.7 mg/dL 8.4-10.2 EGFR (BEAKER) (test code = 1092) 54 mL/min/1.73 sq m ESTIMATED GFR IS NOT ACCURATE CREATININE CLEARANCE IN PREDICTING GLOMERULAR FILTRATION RATE. ESTIMATED GFR IS NOT APPLICABLE FOR DIALYSIS PATIENTS. SPUTUM CULTURE + GRAM [id number] 23:03:00* Test Item Value Reference Range Interpretation Comments CULTURE (BEAKER) (test code = 1095) Oropharyngeal cont amination, specimen rejected. Recollect requested. GRAM STAIN RESULT (BEAKER) (test code = 1123) 1+ WBCs GRAM STAIN RESULT (BEAKER) (test code = 93552) 10-15 epithelial perla ls GRAM STAIN RESULT (BEAKER) (test code = 26480) 2+ gram negative silvio s GRAM STAIN RESULT (BEAKER) (test code = 708928) 2+ gram posi tive cocci in pairs GRAM STAIN RESULT (BEAKER) (test code = 672941) 3+ yeast BLOOD GAS, [id number] 18:23:00* Test Item Value Reference Range Interpretation Comments PH ARTERIAL (BEAKER) (test code = 383) 7.40 7.35-7.45 PCO2 ARTERIAL (BEAKER) (test code = 384) 35 mmHg 35-45 PO2 ARTERIAL (BEAKER) (test code = 385) 66 mmHg 80-90 L O2 SATURATION ARTERIAL (BEAKER) (test code = 386) 93.5 % 96.0 -97.0 L HCO3 ARTERIAL (BEAKER) (test code = 388) 21 mmol/L 21-29 BASE EXCESS ARTERIAL (BEAKER) (test code = 387) -3.6 mmol/L -2.0-3 .0 L PATIENT TEMPERATURE (BEAKER) (test code = 1818) 36.6 C FIO2 (BEAKER) (test code = 1819) 65.0 % BASIC METABOLIC [id number] 16:34:00* Test Item Value Reference Range Interpretation Comments SODIUM (BEAKER) (test code = 381) 141 meq/L 136-145 POTASSIUM (BEAKER) (test code = 379) 5.4 meq/L 3.5-5.1 H Specimen slightly hemolyzed CHLORIDE (BEAKER) (test code = 382) 109 meq/L 98-107 H CO2 (BEAKER) (test code = 355) 24 meq/L 22-29 BLOOD UREA NITROGEN (BEAKER) (test code = 354) 47 mg/dL 7-21 H CREATININE (BEAKER) (test code = 358) 1.36 mg/dL 0.57-1.25 H Specimen slightly hemolyzed GLUCOSE RANDOM (BEAKER) (test code = 652) 108 mg/dL 70-105 H CALCIUM (BEAKER) (test code = 697) 8.9 mg/dL 8.4-10.2 EGFR (BEAKER) (test code = 1092) 50 mL/min/1.73 sq m ESTIMATED GFR IS NOT ACCURATE CREATININE CLEARANCE IN PREDICTING GLOMERULAR FILTRATION RATE. ESTIMATED GFR IS NOT APPLICABLE FOR DIALYSIS PATIENTS. LACTIC ACID, VENOUS, WHOLE [id number] 16:30:00* Test Item Value Reference Range Interpretation Comments LACTATE BLOOD VENOUS (2) (BEAKER) (test code = 2872) 1.3 mmol/L 0 .5-2.2 Effective 10/19/2015: Units/Reference Range ChangeNew: 0.5-2.2 mmol/L Previous: 5 -20 mg/dLRAPID INFLUENZA A&B [id number] 13:43:00* Test Item Value Reference Range Interpretation Comments RAPID INFLUENZA A AG (BEAKER) (test code = 1622) Negative Negative, Inconclusive RAPID INFLUENZA B AG (BEAKER) (test code = 1623) Negative Negative, Inconclusive RAPID STREP A [id number] 13:42:00* Test Item Value Reference Range Interpretation Comments STREP A ANTIGEN (BEAKER) (test code = 556) Negative Negative LACTIC ACID, VENOUS, WHOLE [id number] 12:34:00* Test Item Value Reference Range Interpretation Comments LACTATE BLOOD VENOUS (2) (BEAKER) (test code = 2872) 2.1 mmol/L 0 .5-2.2 Specimen markedly hemolyzed Effective 10/19/2015: Units/Reference Range ChangeNew: 0.5-2.2 mmol/L Previous: 5 -20 mg/dLCREATINE KINASE (CK), TOTAL AND [id number] 09:32:00* Test Item Value Reference Range Interpretation Comments CREATINE KINASE TOTAL (BEAKER) (test code = 380) 29 U/L 29-20 0 CREATINE KINASE-MB (BEAKER) (test code = 750) 1.4 ng/mL 0.0-6.6 CREATINE KINASE-MB INDEX (BEAKER) (test code = 395) 4.8 % CK-MB Reference Range:<6.7 Normal6.7-10.0 Borderline>10.0 Abnormal PT/[id number] 07:18:00* Test Item Value Reference Range Interpretation Comments PROTIME (BEAKER) (test code = 759) 17.1 seconds 11.7-14.7 H INR (BEAKER) (test code = 370) 1.4 <=5.9 PARTIAL THROMBOPLASTIN TIME (BEAKER) (test code = 760) 26.6 seconds 22.5-36.0 RECOMMENDED COUMADIN/WARFARIN INR THERAPY RANGESSTANDARD DOSE: 2.0 - 3.0 Inclu faustino: PROPHYLAXIS for venous thrombosis, systemic embolization; TREATMENT for diego ous thrombosis and/or pulmonary embolus.HIGH RISK: Target INR is 2.5-3.5 for pat ients with mechanical heart valves.CBC W/PLT COUNT & AUTO [id number] 07:16:00* Test Item Value Reference Range Interpretation Comments WHITE BLOOD CELL COUNT (BEAKER) (test code = 775) 10.3 K/ L 3.5- 10.5 RED BLOOD CELL COUNT (BEAKER) (test code = 761) 3.88 M/ L 4.63-6 .08 L HEMOGLOBIN (BEAKER) (test code = 410) 12.5 GM/DL 13.7-17.5 L HEMATOCRIT (BEAKER) (test code = 411) 38.9 % 40.1-51.0 L MEAN CORPUSCULAR VOLUME (BEAKER) (test code = 753) 100.3 fL 79. 0-92.2 H MEAN CORPUSCULAR HEMOGLOBIN (BEAKER) (test code = 751) 32.2 pg 25.7-32.2 MEAN CORPUSCULAR HEMOGLOBIN CONC (BEAKER) (test code = 752) 32.1 GM/DL 32.3-36.5 L RED CELL DISTRIBUTION WIDTH (BEAKER) (test code = 412) 14.3 % 11.6-14.4 PLATELET COUNT (BEAKER) (test code = 756) 185 K/CU MM 150-450 MEAN PLATELET VOLUME (BEAKER) (test code = 754) 9.6 fL 9.4-12 .4 NUCLEATED RED BLOOD CELLS (BEAKER) (test code = 413) 0 /100 WBC 0 -0 NEUTROPHILS RELATIVE PERCENT (BEAKER) (test code = 429) 90 % LYMPHOCYTES RELATIVE PERCENT (BEAKER) (test code = 430) 4 % MONOCYTES RELATIVE PERCENT (BEAKER) (test code = 431) 6 % EOSINOPHILS RELATIVE PERCENT (BEAKER) (test code = 432) 0 % BASOPHILS RELATIVE PERCENT (BEAKER) (test code = 437) 0 % NEUTROPHILS ABSOLUTE COUNT (BEAKER) (test code = 670) 9.20 K/ L 1.78-5.38 H LYMPHOCYTES ABSOLUTE COUNT (BEAKER) (test code = 414) 0.36 K/ L 1.32-3.57 L MONOCYTES ABSOLUTE COUNT (BEAKER) (test code = 415) 0.58 K/ L 0. 30-0.82 EOSINOPHILS ABSOLUTE COUNT (BEAKER) (test code = 416) 0.01 K/ L 0.04-0.54 L BASOPHILS ABSOLUTE COUNT (BEAKER) (test code = 417) 0.04 K/ L 0. 01-0.08 IMMATURE GRANULOCYTES-RELATIVE PERCENT (BEAKER) (test code = 2801) 1 % 0-1 TROPONIN [id number] 06:56:00* Test Item Value Reference Range Interpretation Comments TROPONIN I (BEAKER) (test code = 397) 0.02 ng/mL 0.00-0.03 Troponin I (TnI) levels must be interpreted in the context of the presenting sym ptoms and the clinical findings. Elevated TnI levels indicate myocardial damage, but are not specific for ischemic heart disease. Elevated TnI levels are seen in patients with other cardiac conditions (including myocarditis and congestive h eart failure), and slight TnI elevations occur in patients with other conditions , including sepsis, renal failure, acidosis, acute neurological disease, and per sistent tachyarrhythmia.B-TYPE NATRIURETIC FACTOR (BNP)2017-09-26 06:55:00* Test Item Value Reference Range Interpretation Comments B-TYPE NATRIURETIC PEPTIDE (BEAKER) (test code = 700) 113 pg/mL 0-100 H [id number] 06:48:00* Test Item Value Reference Range Interpretation Comments MAGNESIUM (BEAKER) (test code = 627) 2.6 mg/dL 1.6-2.6 BASIC METABOLIC [id number] 06:48:00* Test Item Value Reference Range Interpretation Comments SODIUM (BEAKER) (test code = 381) 140 meq/L 136-145 POTASSIUM (BEAKER) (test code = 379) 5.3 meq/L 3.5-5.1 H CHLORIDE (BEAKER) (test code = 382) 106 meq/L 98-107 CO2 (BEAKER) (test code = 355) 24 meq/L 22-29 BLOOD UREA NITROGEN (BEAKER) (test code = 354) 51 mg/dL 7-21 H CREATININE (BEAKER) (test code = 358) 1.78 mg/dL 0.57-1.25 H GLUCOSE RANDOM (BEAKER) (test code = 652) 120 mg/dL 70-105 H CALCIUM (BEAKER) (test code = 697) 10.1 mg/dL 8.4-10.2 EGFR (BEAKER) (test code = 1092) 37 mL/min/1.73 sq m ESTIMATED GFR IS NOT ACCURATE CREATININE CLEARANCE IN PREDICTING GLOMERULAR FILTRATION RATE. ESTIMATED GFR IS NOT APPLICABLE FOR DIALYSIS PATIENTS. RAD, CHEST, 1 VIEW, NON [id number] 06:35:00Reason for exam:->SHORTNESS OF BREATHFINAL REPORT RAD, CHEST, 1 VIEW, NON DEPT INDICATION: SHORTNESS OF BREATH COMPARISON: None TECHNIQUE: Single frontal view of the chest. IMPRESSION:Cardiomediastinal silhouette within normal limits.Patchy opacities in the mid to lower right hemithorax and left lung base concerning for a pneumonia.No acute osseous abnormality. Signed: Ankit Cordoba MDReport Verified Date/Time: 09/26/2017 06:35:43 Reading Location: [address] Reading Room -LACTIC ACID, [id number] 06:33:00* Test Item Value Reference Range Interpretation Comments POC-LACTIC ACID, VENOUS (BEAKER) (test code = 2805) 1.1 mmol/L 0. 9-1.[address] [facility] [address] [facility] [address] RAD, SPINE, LUMBAR, COMPLETE (MIN 4 VIEWS)2017-05-06 11:27:00Reason for exam:-> BACK PAINPICKED UP DOG (WEIGHS 30 LBS) ON YESTERDAY. hAS HAD LOWER BACK RADIATIN G INTO LT LEG SINCE INCIDENT.Should this be performed at the bedside?->NoFINAL REPORT Lumbar spine 05/06/2017 at 1126 CLINICAL HISTORY: BACK PAIN COMPARISON: None available IMPRESSION: There is no acute fracture or traumatic malalignment. There are no osteolytic or osteoblastic lesions. 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 The soft tissue is unremarkable. Signed: London Angel Verified Da te/Time: 05/06/2017 11:27:36 Reading Location: [facility] Reading Room ALYSIS W/ [id number] 09:31:00* Test Item Value Reference Range Interpretation Comments COLOR (BEAKER) (test code = 470) Yellow CLARITY (BEAKER) (test code = 469) Clear SPECIFIC GRAVITY UA (BEAKER) (test code = 468) 1.010 1.001-1 .035 PH UA (BEAKER) (test code = 467) 6.5 5.0-8.0 PROTEIN UA (BEAKER) (test code = 464) Negative Negative GLUCOSE UA (BEAKER) (test code = 365) Negative Negative KETONES UA (BEAKER) (test code = 371) Negative Negative BILIRUBIN UA (BEAKER) (test code = 462) Negative Negative BLOOD UA (BEAKER) (test code = 461) Small Negative A NITRITE UA (BEAKER) (test code = 465) Negative Negative LEUKOCYTE ESTERASE UA (BEAKER) (test code = 466) Negative Negat catracho UROBILINOGEN UA (BEAKER) (test code = 463) 0.2 mg/dL 0.2-1.0 BACTERIA (BEAKER) (test code = 517) Rare RBC UA-MANUAL (BEAKER) (test code = 1659) 5-10 /HPF WBC UA-MANUAL (BEAKER) (test code = 1661) <5 /HPF SQUAMOUS EPITHELIAL MANUAL (BEAKER) (test code = 1663) <5 /HPF SOURCE(BEAKER) (test code = 2795) POCT-LACTIC ACID, [id number] 10:33:00* Test Item Value Reference Range Interpretation Comments POC-LACTIC ACID, VENOUS (BEAKER) (test code = 2805) 1.6 mmol/L 0. 9-1.[address] [facility] [address] [facility] [address] BLOOD [id number] 00:00:00* Test Item Value Reference Range Interpretation Comments CULTURE (BEAKER) (test code = 1095) No growth in 5 days BLOOD [id number] 00:00:00* Test Item Value Reference Range Interpretation Comments CULTURE (BEAKER) (test code = 1095) No growth in 5 days CBC W/PLT COUNT & AUTO [id number] 08:03:00* Test Item Value Reference Range Interpretation Comments WHITE BLOOD CELL COUNT (BEAKER) (test code = 775) 3.0 K/ L 4.0- 10.0 L RED BLOOD CELL COUNT (BEAKER) (test code = 761) 3.03 M/ L 4.20-5 .80 L HEMOGLOBIN (BEAKER) (test code = 410) 10.3 GM/DL 13.0-16.8 L HEMATOCRIT (BEAKER) (test code = 411) 31.5 % 40.0-50.0 L MEAN CORPUSCULAR VOLUME (BEAKER) (test code = 753) 104.0 fL 82. 0-98.0 H MEAN CORPUSCULAR HEMOGLOBIN (BEAKER) (test code = 751) 34.2 pg 27.0-33.0 H MEAN CORPUSCULAR HEMOGLOBIN CONC (BEAKER) (test code = 752) 32.8 GM/DL 32.0-36.0 RED CELL DISTRIBUTION WIDTH (BEAKER) (test code = 412) 12.9 % 10.3-14.2 PLATELET COUNT (BEAKER) (test code = 756) 86 K/CU MM 150-430 L MEAN PLATELET VOLUME (BEAKER) (test code = 754) 6.9 fL 6.5-10 .5 NUCLEATED RED BLOOD CELLS (BEAKER) (test code = 413) 0 /100 WBC 0 -0 NEUTROPHILS RELATIVE PERCENT (BEAKER) (test code = 429) 64 % LYMPHOCYTES RELATIVE PERCENT (BEAKER) (test code = 430) 15 % MONOCYTES RELATIVE PERCENT (BEAKER) (test code = 431) 18 % EOSINOPHILS RELATIVE PERCENT (BEAKER) (test code = 432) 2 % BASOPHILS RELATIVE PERCENT (BEAKER) (test code = 437) 1 % NEUTROPHILS ABSOLUTE COUNT (BEAKER) (test code = 670) 1.89 K/ L 1.80-8.00 LYMPHOCYTES ABSOLUTE COUNT (BEAKER) (test code = 414) 0.45 K/ L 1.48-4.50 L MONOCYTES ABSOLUTE COUNT (BEAKER) (test code = 415) 0.53 K/ L 0. 00-1.30 EOSINOPHILS ABSOLUTE COUNT (BEAKER) (test code = 416) 0.06 K/ L 0.00-0.50 BASOPHILS ABSOLUTE COUNT (BEAKER) (test code = 417) 0.02 K/ L 0. 00-0.20 (MANUAL DIFFERENTIAL)2016-12-30 08:03:00* Test Item Value Reference Range Interpretation Comments TOTAL COUNTED (BEAKER) (test code = 1351) WBC MORPHOLOGY (BEAKER) (test code = 487) Normal PLT MORPHOLOGY (BEAKER) (test code = 486) Normal POLYCHROMATOPHILLIC RBCS(BEAKER) (test code = 478) 1+ few BASIC METABOLIC [id number] 05:28:00* Test Item Value Reference Range Interpretation Comments SODIUM (BEAKER) (test code = 381) 139 meq/L 136-145 POTASSIUM (BEAKER) (test code = 379) 3.5 meq/L 3.5-5.1 CHLORIDE (BEAKER) (test code = 382) 110 meq/L 98-107 H CO2 (BEAKER) (test code = 355) 20 meq/L 22-29 L BLOOD UREA NITROGEN (BEAKER) (test code = 354) 21 mg/dL 7-21 CREATININE (BEAKER) (test code = 358) 1.21 mg/dL 0.57-1.25 GLUCOSE RANDOM (BEAKER) (test code = 652) 104 mg/dL 70-105 CALCIUM (BEAKER) (test code = 697) 7.7 mg/dL 8.4-10.2 L EGFR (BEAKER) (test code = 1092) 58 mL/min/1.73 sq m ESTIMATED GFR IS NOT ACCURATE CREATININE CLEARANCE IN PREDICTING GLOMERULAR FILTRATION RATE. ESTIMATED GFR IS NOT APPLICABLE FOR DIALYSIS PATIENTS. [id number] 05:14:00* Test Item Value Reference Range Interpretation Comments PHOSPHORUS (BEAKER) (test code = 604) 2.7 mg/dL 2.3-4.7 [id number] 05:14:00* Test Item Value Reference Range Interpretation Comments MAGNESIUM (BEAKER) (test code = 627) 1.9 mg/dL 1.6-2.6 SPUTUM CULTURE + GRAM [id number] 16:44:00* Test Item Value Reference Range Interpretation Comments CULTURE (BEAKER) (test code = 1095) Oropharyngeal cont amination, specimen rejected. Recollect requested. GRAM STAIN RESULT (BEAKER) (test code = 1123) No WBCs GRAM STAIN RESULT (BEAKER) (test code = 49330) >25 epithelial cells GRAM STAIN RESULT (BEAKER) (test code = 82957) <1+ gram negative ro ds GRAM STAIN RESULT (BEAKER) (test code = 012741) 4+ gram positive ro ds URINE [id number] 14:04:00* Test Item Value Reference Range Interpretation Comments CULTURE (BEAKER) (test code = 1095) 40-49,000 col/mL skin meg [id number] 12:46:00* Test Item Value Reference Range Interpretation Comments PHOSPHORUS (BEAKER) (test code = 604) 1.9 mg/dL 2.3-4.7 L [id number] 12:42:00* Test Item Value Reference Range Interpretation Comments D-DIMER QUANTITATIVE (BEAKER) (test code = 671) 1.17 MG/L FEU <0.50 H Intended Use: The D-Dimer Assay can be used to aid in the diagnosis of Deep Vein Thrombosis (DVT) and Pulmonary Embolism Disease (PED).In patients with low pre- test probability, various studies concerning STA Liatest D-dimer test have repor mario that with a cutoff value of 0.50 MG/L FEU, the Negative Predictive Value (TRENCHER DRIVER V) regarding the exclusion of thrombosis is within 95-100% range.FIBRINOGEN 2016-12-29 12:41:00* Test Item Value Reference Range Interpretation Comments FIBRINOGEN LEVEL (BEAKER) (test code = 658) 791 mg/dl 225-434 H VITAMIN B12 AND [id number] 12:12:00* Test Item Value Reference Range Interpretation Comments VITAMIN B12 (BEAKER) (test code = 774) 1164 pg/mL 213-816 H FOLATE (BEAKER) (test code = 362) 14.1 ng/mL >=7.0 Effective 05/04/2014: Folate Reference Range ChangeNew: >=7.0 Previous: >=5.4 PLATELET [id number] 11:00:00* Test Item Value Reference Range Interpretation Comments PLATELET COUNT (BEAKER) (test code = 756) 77 K/CU MM 150-430 L T4, [id number] 09:16:00* Test Item Value Reference Range Interpretation Comments FREE T4 (BEAKER) (test code = 655) 0.80 ng/dL 0.70-1.48 TSH/FREE T4 IF [id number] 08:42:00* Test Item Value Reference Range Interpretation Comments THYROID STIMULATING HORMONE (BEAKER) (test code = 772) 22.64 uIU/mL 0.35-4.94 H CBC W/PLT COUNT & AUTO [id number] 08:31:00* Test Item Value Reference Range Interpretation Comments WHITE BLOOD CELL COUNT (BEAKER) (test code = 775) 5.4 K/ L 4.0- 10.0 RED BLOOD CELL COUNT (BEAKER) (test code = 761) 3.00 M/ L 4.20-5 .80 L HEMOGLOBIN (BEAKER) (test code = 410) 10.6 GM/DL 13.0-16.8 L HEMATOCRIT (BEAKER) (test code = 411) 31.1 % 40.0-50.0 L MEAN CORPUSCULAR VOLUME (BEAKER) (test code = 753) 104.0 fL 82. 0-98.0 H MEAN CORPUSCULAR HEMOGLOBIN (BEAKER) (test code = 751) 35.5 pg 27.0-33.0 H MEAN CORPUSCULAR HEMOGLOBIN CONC (BEAKER) (test code = 752) 34.2 GM/DL 32.0-36.0 RED CELL DISTRIBUTION WIDTH (BEAKER) (test code = 412) 14.3 % 10.3-14.2 H PLATELET COUNT (BEAKER) (test code = 756) 80 K/CU MM 150-430 L MEAN PLATELET VOLUME (BEAKER) (test code = 754) 7.5 fL 6.5-10 .5 NUCLEATED RED BLOOD CELLS (BEAKER) (test code = 413) 0 /100 WBC 0 -0 NEUTROPHILS RELATIVE PERCENT (BEAKER) (test code = 429) 78 % LYMPHOCYTES RELATIVE PERCENT (BEAKER) (test code = 430) 13 % MONOCYTES RELATIVE PERCENT (BEAKER) (test code = 431) 7 % EOSINOPHILS RELATIVE PERCENT (BEAKER) (test code = 432) 3 % BASOPHILS RELATIVE PERCENT (BEAKER) (test code = 437) 0 % NEUTROPHILS ABSOLUTE COUNT (BEAKER) (test code = 670) 4.16 K/ L 1.80-8.00 LYMPHOCYTES ABSOLUTE COUNT (BEAKER) (test code = 414) 0.70 K/ L 1.48-4.50 L MONOCYTES ABSOLUTE COUNT (BEAKER) (test code = 415) 0.38 K/ L 0. 00-1.30 EOSINOPHILS ABSOLUTE COUNT (BEAKER) (test code = 416) 0.14 K/ L 0.00-0.50 BASOPHILS ABSOLUTE COUNT (BEAKER) (test code = 417) 0.00 K/ L 0. 00-0.20 0.000.800.510.000.900.001.100.000.000.000.000.740.000.000.900.000.000.000.00 (MANUAL DIFFERENTIAL)2016-12-29 08:31:00* Test Item Value Reference Range Interpretation Comments NEUTROPHILS - REL (DIFF) (BEAKER) (test code = 1359) 66 % LYMPHOCYTES - REL (DIFF) (BEAKER) (test code = 1360) 14 % MONOCYTES - REL (DIFF) (BEAKER) (test code = 1361) 8 % EOSINOPHILS - REL (DIFF) (BEAKER) (test code = 1362) 1 % BANDS - REL (DIFF) (BEAKER) (test code = 1348) 11 % 0-10 H NEUTROPHILS - ABS (DIFF) (BEAKER) (test code = 1365) 3.56 K/ L 1 .80-8.00 LYMPHOCYTES - ABS (DIFF) (BEAKER) (test code = 1366) 0.76 K/ L 1 .48-4.50 L MONOCYTES - ABS (DIFF) (BEAKER) (test code = 1367) 0.43 K/ L 0.0 0-1.30 EOSINOPHILS - ABS (DIFF) (BEAKER) (test code = 1368) 0.05 K/ L 0 .00-0.50 BANDS-ABS (DIFF) (BEAKER) (test code = 1349) 0.6 K/ L 0.0-0.8 TOTAL COUNTED (BEAKER) (test code = 1351) 100 BANDS + SEGMENTED NEUTROPHILS (BEAKER) (test code = 1352) 4.16 WBC MORPHOLOGY (BEAKER) (test code = 487) Normal PLT MORPHOLOGY (BEAKER) (test code = 486) Normal ACANTHOCYTES (BEAKER) (test code = 471) 1+ few ANISOCYTOSIS (BEAKER) (test code = 961) 1+ few MACROCYTES (BEAKER) (test code = 964) 1+ few POIKILOCYTES (BEAKER) (test code = 966) 1+ few POLYCHROMATOPHILLIC RBCS(BEAKER) (test code = 478) 1+ few [id number] 07:16:00* Test Item Value Reference Range Interpretation Comments PHOSPHORUS (BEAKER) (test code = 604) 1.5 mg/dL 2.3-4.7 LL BASIC METABOLIC [id number] 07:14:00* Test Item Value Reference Range Interpretation Comments SODIUM (BEAKER) (test code = 381) 137 meq/L 136-145 POTASSIUM (BEAKER) (test code = 379) 3.9 meq/L 3.5-5.1 CHLORIDE (BEAKER) (test code = 382) 109 meq/L 98-107 H CO2 (BEAKER) (test code = 355) 21 meq/L 22-29 L BLOOD UREA NITROGEN (BEAKER) (test code = 354) 26 mg/dL 7-21 H CREATININE (BEAKER) (test code = 358) 1.30 mg/dL 0.57-1.25 H GLUCOSE RANDOM (BEAKER) (test code = 652) 94 mg/dL 70-105 CALCIUM (BEAKER) (test code = 697) 7.9 mg/dL 8.4-10.2 L EGFR (JAKE) (test code = 1092) 53 mL/min/1.73 sq m ESTIMATED GFR IS NOT ACCURATE CREATININE CLEARANCE IN PREDICTING GLOMERULAR FILTRATION RATE. ESTIMATED GFR IS NOT APPLICABLE FOR DIALYSIS PATIENTS. LEGIONELLA ANTIGEN, [id number] 06:30:00* Test Item Value Reference Range Interpretation Comments L. PNEUMOPHILA SEROGP 1 UR AG (JAKE) (test code = 11 56) Negative - see comment Negative for L. pneu mophila serogroup 1 antigen, suggesting no recent or current infection with this serogroup. Legionellosis cannot be ruled out since other serogroups and species may cause disease. STREP PNEUMONIAE [id number] 06:30:00* Test Item Value Reference Range Interpretation Comments STREP PNEUMONIAE ANTIGEN (JAKE) (test code = 1615) P resumptive negative for pneumococcal pneumonia - see comment Presumptive negative for pneumococcal pneumonia - see commen Presumptive negative for pneumococcal pneumonia, suggesting no current or recent pneumococcal infection. Infection due to S. pneumoniae cannot be ruled out since the antigen present in the sample may be below the detection limit of the test. [id number] 02:47:00* Test Item Value Reference Range Interpretation Comments PHOSPHORUS (JAKE) (test code = 604) 2.2 mg/dL 2.3-4.7 L TROPONIN [id number] 02:47:00* Test Item Value Reference Range Interpretation Comments TROPONIN I (JAKE) (test code = 397) 0.03 ng/mL 0.00-0.03 Effective 05/04/2014: Reference Range ChangeNew: 0.00-0.03 Previous 0.00-0.15T roponin I (TnI) levels must be interpreted in the context of the presenting symp toms and the clinical findings. Elevated TnI levels indicate myocardial damage, but are not specific for ischemic heart disease. Elevated TnI levels are seen in patients with other cardiac conditions (including myocarditis and congestive he art failure), and slight TnI elevations occur in patients with other conditions, including sepsis, renal failure, acidosis, acute neurological disease, and pers istent tachyarrhythmia.LACTIC ACID, VENOUS, WHOLE [id number] 02:38:00* Test Item Value Reference Range Interpretation Comments LACTATE BLOOD VENOUS (2) (BEAKER) (test code = 2872) 1.6 mmol/L 0 .5-2.2 Effective 10/19/2015: Units/Reference Range ChangeNew: 0.5-2.2 mmol/L Previous: 5 -20 mg/dLURINALYSIS W/ [id number] 23:00:00* Test Item Value Reference Range Interpretation Comments COLOR (BEAKER) (test code = 470) Yellow CLARITY (BEAKER) (test code = 469) Clear SPECIFIC GRAVITY UA (BEAKER) (test code = 468) 1.021 1.001-1 .035 PH UA (BEAKER) (test code = 467) 6.0 5.0-8.0 PROTEIN UA (BEAKER) (test code = 464) 100 mg/dL Negative A GLUCOSE UA (BEAKER) (test code = 365) Negative Negative KETONES UA (BEAKER) (test code = 371) Negative Negative BILIRUBIN UA (BEAKER) (test code = 462) Negative Negative BLOOD UA (BEAKER) (test code = 461) Moderate Negative A NITRITE UA (BEAKER) (test code = 465) Negative Negative LEUKOCYTE ESTERASE UA (BEAKER) (test code = 466) Negative Negat catracho UROBILINOGEN UA (BEAKER) (test code = 463) 2.0 mg/dL 0.2-1.0 H RBC UA (BEAKER) (test code = 519) 1 /HPF WBC UA (BEAKER) (test code = 520) 0 /HPF MUCUS (BEAKER) (test code = 1574) Rare SQUAMOUS EPITHELIAL (BEAKER) (test code = 516) < /HPF SOURCE(BEAKER) (test code = 2795) Urine, Voided POCT-LACTIC ACID, [id number] 22:22:00* Test Item Value Reference Range Interpretation Comments POC-LACTIC ACID, VENOUS (BEAKER) (test code = 2805) 0.7 mmol/L 0. 9-1.[address] [facility] [address] [facility] [address] CREATINE KINASE (CK)2016-12-27 19:51:00* Test Item Value Reference Range Interpretation Comments CREATINE KINASE TOTAL (BEAKER) (test code = 380) 351 U/L 29-20 0 H (MANUAL DIFFERENTIAL)2016-12-27 19:34:00* Test Item Value Reference Range Interpretation Comments NEUTROPHILS - REL (DIFF) (BEAKER) (test code = 1359) 90 % LYMPHOCYTES - REL (DIFF) (BEAKER) (test code = 1360) 5 % MONOCYTES - REL (DIFF) (BEAKER) (test code = 1361) 4 % EOSINOPHILS - REL (DIFF) (BEAKER) (test code = 1362) 1 % NEUTROPHILS - ABS (DIFF) (BEAKER) (test code = 1365) 7.83 K/ L 1 .80-8.00 LYMPHOCYTES - ABS (DIFF) (BEAKER) (test code = 1366) 0.44 K/ L 1 .48-4.50 L MONOCYTES - ABS (DIFF) (BEAKER) (test code = 1367) 0.35 K/ L 0.0 0-1.30 EOSINOPHILS - ABS (DIFF) (BEAKER) (test code = 1368) 0.09 K/ L 0 .00-0.50 TOTAL COUNTED (BEAKER) (test code = 1351) 100 WBC MORPHOLOGY (BEAKER) (test code = 487) Normal PLT MORPHOLOGY (BEAKER) (test code = 486) Normal RBC MORPHOLOGY (BEAKER) (test code = 762) Normal CBC W/PLT COUNT & AUTO [id number] 19:33:00* Test Item Value Reference Range Interpretation Comments WHITE BLOOD CELL COUNT (BEAKER) (test code = 775) 8.7 K/ L 4.0- 10.0 RED BLOOD CELL COUNT (BEAKER) (test code = 761) 3.70 M/ L 4.20-5 .80 L HEMOGLOBIN (BEAKER) (test code = 410) 12.8 GM/DL 13.0-16.8 L HEMATOCRIT (BEAKER) (test code = 411) 38.8 % 40.0-50.0 L MEAN CORPUSCULAR VOLUME (BEAKER) (test code = 753) 105.0 fL 82. 0-98.0 H MEAN CORPUSCULAR HEMOGLOBIN (BEAKER) (test code = 751) 34.5 pg 27.0-33.0 H MEAN CORPUSCULAR HEMOGLOBIN CONC (BEAKER) (test code = 752) 32.9 GM/DL 32.0-36.0 RED CELL DISTRIBUTION WIDTH (BEAKER) (test code = 412) 14.4 % 10.3-14.2 H PLATELET COUNT (BEAKER) (test code = 756) 95 K/CU MM 150-430 L MEAN PLATELET VOLUME (BEAKER) (test code = 754) 7.2 fL 6.5-10 .5 NUCLEATED RED BLOOD CELLS (BEAKER) (test code = 413) 0 /100 WBC 0 -0 POCT-LACTIC ACID, [id number] 19:28:00* Test Item Value Reference Range Interpretation Comments POC-LACTIC ACID, VENOUS (BEAKER) (test code = 2805) 1.0 mmol/L 0. 9-1.[address] [facility] [address] [facility] [address] CREATINE KINASE (CK), TOTAL AND [id number] 19:19:00* Test Item Value Reference Range Interpretation Comments CREATINE KINASE TOTAL (BEAKER) (test code = 380) 406 U/L 29-20 0 H CREATINE KINASE-MB (BEAKER) (test code = 750) 5.2 ng/mL 0.0-6.6 CREATINE KINASE-MB INDEX (BEAKER) (test code = 395) 1.3 % Effective 05/04/2014: CK-MB Reference Range ChangeNew: 0.0-6.6 Previous: 0.0- 4.9CK-MB Reference Range:<6.7 Normal6.7-10.0 Borderline>10.0 Abnormal TROPONIN [id number] 19:19:00* Test Item Value Reference Range Interpretation Comments TROPONIN I (BEAKER) (test code = 397) 0.04 ng/mL 0.00-0.03 H Effective 05/04/2014: Reference Range ChangeNew: 0.00-0.03 Previous 0.00-0.15T roponin I (TnI) levels must be interpreted in the context of the presenting symp toms and the clinical findings. Elevated TnI levels indicate myocardial damage, but are not specific for ischemic heart disease. Elevated TnI levels are seen in patients with other cardiac conditions (including myocarditis and congestive he art failure), and slight TnI elevations occur in patients with other conditions, including sepsis, renal failure, acidosis, acute neurological disease, and pers istent tachyarrhythmia.B-TYPE NATRIURETIC FACTOR (BNP)2016-12-27 19:19:00* Test Item Value Reference Range Interpretation Comments B-TYPE NATRIURETIC PEPTIDE (BEAKER) (test code = 700) 166 pg/mL 0-100 H COMPREHENSIVE METABOLIC [id number] 19:13:00* Test Item Value Reference Range Interpretation Comments TOTAL PROTEIN (BEAKER) (test code = 770) 7.7 gm/dL 6.0-8.3 ALBUMIN (BEAKER) (test code = 1145) 3.8 g/dL 3.5-5.0 ALKALINE PHOSPHATASE (BEAKER) (test code = 346) 57 U/L 40-150 BILIRUBIN TOTAL (BEAKER) (test code = 377) 0.7 mg/dL 0.2-1.2 SODIUM (BEAKER) (test code = 381) 136 meq/L 136-145 POTASSIUM (BEAKER) (test code = 379) 4.3 meq/L 3.5-5.1 CHLORIDE (BEAKER) (test code = 382) 105 meq/L 98-107 CO2 (BEAKER) (test code = 355) 22 meq/L 22-29 BLOOD UREA NITROGEN (BEAKER) (test code = 354) 40 mg/dL 7-21 H CREATININE (BEAKER) (test code = 358) 2.07 mg/dL 0.57-1.25 H GLUCOSE RANDOM (BEAKER) (test code = 652) 125 mg/dL 70-105 H CALCIUM (BEAKER) (test code = 697) 9.4 mg/dL 8.4-10.2 AST (SGOT) (BEAKER) (test code = 353) 48 U/L 5-34 H ALT (SGPT) (BEAKER) (test code = 347) 29 U/L 6-55 EGFR (BEAKER) (test code = 1092) 31 mL/min/1.73 sq m ESTIMATED GFR IS NOT ACCURATE CREATININE CLEARANCE IN PREDICTING GLOMERULAR FILTRATION RATE. ESTIMATED GFR IS NOT APPLICABLE FOR DIALYSIS PATIENTS. PROTHROMBIN TIME/[id number] 19:02:00* Test Item Value Reference Range Interpretation Comments PROTIME (BEAKER) (test code = 759) 16.4 seconds 11.7-14.7 H INR (BEAKER) (test code = 370) 1.3 <=5.9 RECOMMENDED COUMADIN/WARFARIN INR THERAPY RANGESSTANDARD DOSE: 2.0 - 3.0 Inclu faustino: PROPHYLAXIS for venous thrombosis, systemic embolization; TREATMENT for diego ous thrombosis and/or pulmonary embolus.HIGH RISK: Target INR is 2.5-3.5 for pat ients with mechanical heart valves.
--- OUTSIDE RECORDS SUMMARY | 2020-03-04 10:57 | XMS REPORT | Clinical Summary ---
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 Active fish oil-dha-epa Take by mouth 0 1,200-144-216 mg Cap 3 (three) times daily . Active VITAMIN B COMPLEX ORAL Take by 0 mouth. Active clopidogrel (PLAVIX) 75 TAKE ONE 0 / 201 mg tablet TABLET BY 6 MOUTH EVERY DAY. Active gabapentin (NEURONTIN) Take 100 mg 0 06/27/ 01 100 MG capsule by mouth 6 nightly . Active niacin (NIASPAN) 1000 MG TAKE 1 TABLET 0 03/06 CR tablet BY MOUTH AT 4 BEDTIME. Active nitroglycerin (NITROSTAT) Place 0.4 mg 0 /0 0.4 MG SL tablet under the 6 tongue. Active tiZANidine (ZANAFLEX) 4 TAKE ONE 0 09/04/ 201 MG tablet TABLET BY 6 MOUTH EVERY 6 HOURS NEEDED FOR PAIN. Active pantoprazole (PROTONIX) Take 1 tablet 40 tablet 0 40 MG tablet (40 mg total) 6 by mouth daily Take twice daily for 1 week and then daily therafter. Active amiodarone (PACERONE) 200 Take 100 mg 0 MG tablet by mouth daily . Active atorvastatin (LIPITOR) 40 Take 40 mg by 0 MG tablet mouth daily. Active azelastine (ASTELIN) 137 1 spray by 0 mcg (0.1 %) nasal spray Nasal route 2 (two) times daily Use in each nostril as directed . Active alfuzosin (UROXATRAL) 10 Take 10 mg by 0 mg 24 hr tablet mouth daily. Active levothyroxine (SYNTHROID, Take 112 mcg 0 LEVOTHROID) 112 MCG by mouth tablet Every morning on an empty stomach. Active predniSONE (DELTASONE) 10 Take 2 tablet 10 tablet 0 04/20/201 MG tablet x 3 days then 8 1 tablet x 3 days then stop. Active Problems Problem Noted Date Pneumonia of both lower lobes due to infectious organ ism 09/26/2017 Acute respiratory failure with hypoxia 09/26/2017 Pneumonia of both lungs due to infectious organism 0 12/30/2016 Hypophosphatemia 12/30/2016 Thrombocytopenia 12/30/2016 Hyperlipidemia 12/30/2016 Hypertension 12/30/2016 Anemia 12/30/2016 Leukopenia 12/30/2016 Dehydration 12/30/2016 PAF (paroxysmal atrial fibrillation) 05/11/2016 Acute kidney injury 10/10/2015 Hypothyroid 10/09/2015 CAD (coronary artery disease), S/P ACB in 2001, 2008 cath, LAD 100%, RCA 10/11/2013 100%, LCX critical, WYATT to LAD patent, SVG to OM1 60%,SVG to OM 2 patent, Family History Medical History Relation Name Comments Alcohol abuse Father Arthritis Mother Stroke Mother Diabetes Son Relation Name Status Comments Father Mother Son Social History Date Tobacco Use Types Packs/Day Years Used Never Smoker Smokeless Tobacco: Never Used Alcohol Use Drinks/Week oz/Week Comments No Sex Assigned at Date Recorded Not on file Industry Job Start Date Occupation Not on file Not on file Not on file Travel End Travel History Travel Start No recent travel history available. Last Filed Vital Signs Not on file Plan of Treatment Not on file Implants Device Identifier Shelf Expiration Date Model / Serial / L ot Implanted Type Area Manufactur er 09/06/2016 [id number] / / [id number] Premier 3.50mm X 16mm Stent Stents-Cor N/A: Heart [place] Implanted: Qty: 1 on 2015 by Jyoti Carrasco MD Results Not on fileafter 03/04/2019 Insurance Payer Benefit Subscriber ID Type Phone Address Plan / Group [facility]IC[facility] ADV [id number] Advance Directives Patient has advance care planning documents, and code status on file. For more i nformation, please contact: [facility] [address] [place] [address] Date Inactivated Comments Code Status Date Activated 10/04/2017 6:18 PM Full Code 09/27/2017 5:53 PM This code status was determined by: Patient 09/27/2017 5:53 PM Full Code 09/26/2017 9:15 AM This code status was determined by: Patient 12/30/2016 5:09 PM Full Code 12/27/2016 6:51 PM This code status was determined by: Patient 05/13/2016 2:01 PM Full Code 05/11/2016 12:21 PM This code status was determined by: Patient 10/23/2015 3:26 PM Full Code 10/19/2015 8:42 PM This code status was determined by: Patient
== END 2020-03-04 11:09 | disposition home or self-care (01) ==
LOC: ER 09:00
DX: S22.32XA Fracture of one rib, left side, initial encounter for closed fracture (principal); W18.41XA Slipping, tripping and stumbling without falling due to stepping on object, initial encounter; Y93.01 Activity, walking, marching and hiking; Y92.008 Other place in unspecified non-institutional (private) residence as the place of occurrence of the external cause; I10 Essential (primary) hypertension; Z95.1 Presence of aortocoronary bypass graft
CPT/HCPCS: 71101; 99284; J2270; J2405